=== PATIENT | female | born 1930 ===

== ENCOUNTER 2018-05-13 08:38 | Inpatient (IN) | payer MEDICARE, OTHER ==
[2018-05-10 12:04] VITALS: BMI 24.9
[2018-05-13] MEDS ORDERED: Lidocaine 2% MPF (5 ml) Inj ONE (13:54)
[2018-05-13] MEDS ORDERED: Lidocaine Hydrochloride 0 ML INJ ONE (13:54)
[2018-05-13] MEDS ORDERED: Clindamycin 600mg/50ml NS 600 MG/50 ML BAG IVPB ONE (13:54)
[2018-05-13] MEDS ORDERED: Bupivacaine 0.25% 20 ML INJ IJ ONE (13:54)
[2018-05-13] MEDS ORDERED: Lidocaine Hydrochloride 5 ML INJ ONE (14:04)
[2018-05-13] MEDS ORDERED: Propofol 10 mg/ml Inj (20 ML) ONE (14:05)
[2018-05-13] MEDS ORDERED: ePHEDrine 50 mg/ml Inj ONE (14:19)
[2018-05-13] MEDS ORDERED: HYDROmorphone 0.5 mg/0.5 ml ISec IVP PRN (14:30)
[2018-05-13] MEDS ORDERED: Oxycodone/Acetaminophen 5/325 mg Tab PO PRN (14:46)
--- NOTE | 2018-05-13 14:58 | PCM.SURG1 ---
Surgeon's Initial Post Op Note - Surgeon's Notes Surgeon: Dr. Batres Interactive Marketing Strategist: Dr. Meyer PGY2 Type of Anesthesia: General LMA Anesthesia Administered By: Dr. Smith Pre-Operative Diagnosis: Left Gluteal Hematoma Operative Findings: See operative report Post-Operative Diagnosis: same Operation Performed: Left Gluteal Hematoma Incision and Drainage Specimen/Specimens Removed: Left gluteal hematoma Estimated Blood Loss: EBL {In ML}: 10 Blood Products Given: N/A Drains Used: No Drains Post-Op Condition: Good Date of Surgery/Procedure: 05/13/18 Time of Surgery/Procedure: 15:02
[2018-05-13] MEDS ORDERED: HYDROmorphone 0.5 mg/0.5 ml ISec ONE (15:28)
[2018-05-13] MEDS ORDERED: Albuterol HFA 90 mcg/actuation (8 g) IH SCH (18:00)
[2018-05-13 23:22] VITALS: RESP 20
[2018-05-14] MEDS ORDERED: Levothyroxine 50 MCG TAB PO SCH (06:30)
[2018-05-14] MEDS ORDERED: Pantoprazole 40 mg EC Tab PO SCH (10:00)
[2018-05-14] MEDS ORDERED: Pneumococcal 23-Valent Vaccine IM ONE (10:00)
--- NOTE | 2018-05-14 13:18 | OP ---
PROCEDURE DATE: 05/13/2018 PREOPERATIVE DIAGNOSIS: Large left hip hematoma. POSTOPERATIVE DIAGNOSIS: Large left hip hematoma. PROCEDURE CARRIED OUT: Evacuation of 15 cm hip hematoma, left side. SURGEON: Hema Batres Jr., MD WEB PRESS OPERATOR APPRENTICE: Tre Meyer DO ANESTHESIOLOGIST: Dr. Smith The patient is an ill elderly woman who fell and developed a large hematoma on her left side just over hip . This was evacuated, appeared to be clot, was sterilely irrigated with peroxide and packed open. Blood loss to the procedure was minimal 10 to 15 cc, but there was a large hematoma that was evacuated. The patient tolerated the procedure very well. Hema Batres Jr., MD cc: Steph Torres MD
--- NOTE | 2018-05-14 15:05 | CP.PCM.DIS ---
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 Patient tolerated procedure well and was kept overnight for observation. Patient was discharged the following day, packing was removed and hemostasis was noted prior to clearing for discharge home. Patient and patient's caregiver (son) was given supplies and follow up instructions. All questions and concerns were addressed. Patient and son agree with plan. Discharge Exam - Head Exam Head Exam: ATRAUMATIC, NORMAL INSPECTION, NORMOCEPHALIC - Eye Exam Eye Exam: EOMI, Normal appearance. absent: Scleral icterus - Cardiovascular Exam Cardiovascular Exam: RRR. absent: JVD - GI/Abdominal Exam GI & Abdominal Exam: Soft, Unremarkable. absent: Distended, Firm, Guarding, Rebound, Rigid, Tenderness - Extremities Exam Extremities exam: normal inspection Additional comments: left gluteal hematoma site dressing changed. Packing removed. Dressing clean, dry and intact. - Neurological Exam Neurological exam: Alert - Skin Skin Exam: Dry, Normal Color, Warm Discharge Plan - Follow Up Plan Condition: GOOD Disposition: HOME/ ROUTINE
[2018-05-14 16:18] VITALS: PULSE 82; TEMP 97.7; O2SAT 98
[2018-05-14 18:42] VITALS: BP 127/68
--- NOTE | 2018-05-15 08:31 | PCM.HF ---
Heart Failure Core Measure - Heart Failure Ejection Fraction: 40 % or Greater LIZBETH Inhibitor Prescribed: No Contraindication/Reason for not providing: EF>45 Beta-Cara Prescribed: Metoprolol Succinate Angiotensin II Receptor Cara Prescribed: No Contraindication/Reason for not providing: EF>45 AnticoagulationTherapy for Atrial Fibrillation/Atrialflutter: No Contraindication/Reason for not providing: NO HX OD A FIB Aldosterone Antagonist Prescribed: No Contraindication/Reason for not providing: EF>45 Hydralazine Nitrate Prescribed: No Contraindication/Reason for not providing: EF>45 Implantable Cardioverter Defibrillator Therapy: No Contraindication/Reason for not providing: EF>45 Cardiac Resynchronization Therapy Prescribed: No Contraindication/Reason for not providing: EF>45 - Follow up Will be discharged to: Home Follow Up Date (must be within 7 days from discharge): 05/20/18 Follow Up Time: 15:00
== END 2018-05-14 19:46 | disposition home or self-care (01) | DRG 605 ==
LOC: C.SDS 08:38 → C.9S 14:38 → C.3T 21:20
PROVIDERS: ADMIT Surgery Vascular Surgery; ATTEND Surgery Vascular Surgery
PROC: 0Y9D0ZZ Drainage of Left Upper Leg, Open Approach (ICD-10-PCS; principal; 2018-05-13 12:15)
DX: S80.12XA Contusion of left lower leg, initial encounter (principal); S70.02XA Contusion of left hip, initial encounter; X58.XXXA Exposure to other specified factors, initial encounter; Y93.9 Activity, unspecified; Y92.9 Unspecified place or not applicable

== ENCOUNTER 2018-08-18 16:13 | Observation (INO) | payer MEDICARE, OTHER ==
[2018-08-18 16:14] VITALS: BMI 24.9
[2018-08-18] MEDS ORDERED: Aspirin 325 mg EC Tablets PO STA (17:27)
--- NOTE | 2018-08-18 17:43 | RAD ---
Date of service: 08/18/2018 PROCEDURE: CHEST RADIOGRAPH, 1 VIEW HISTORY: SOB, CP COMPARISON: 05/10/2018 FINDINGS: LUNGS: Clear. PLEURA: No pneumothorax or pleural fluid seen. CARDIOVASCULAR: No aortic atherosclerotic calcification present. Normal. OSSEOUS STRUCTURES: No significant abnormalities. VISUALIZED UPPER ABDOMEN: Normal. OTHER FINDINGS: None. IMPRESSION: No active disease.
[2018-08-18 17:48] LABS: BASO # 0.1 K/uL (0.0-0.2); BASO % 0.7 % (0.0-2.0); EOS # 0.1 K/uL (0.0-0.7); EOS % 1.5 % (0.0-4.0); HEMOGLOBIN 11.9 g/dL (11.0-16.0); LYMPH # 1.5 K/uL (1.0-4.3); LYMPH % 21.1 % (20.0-40.0); MEAN CORPUSCULAR HEMOGLOBIN 31.4 pg (27.0-31.0); MEAN CORPUSCULAR HGB CONC 33.4 g/dL (33.0-37.0); MEAN PLATELET VOLUME 9.7 fL (7.2-11.7); MONO # 0.7 K/uL (0.0-0.8); MONO % 9.5 % (0.0-10.0); NEUT # 4.7 K/uL (1.8-7.0); NEUT % 67.2 % (50.0-75.0); RBC 3.78 Mil/uL (3.80-5.20); RED CELL DISTRIBUTION WIDTH 15.4 % (11.5-14.5)
[2018-08-18 17:58] LABS: PROTHROMBIN TIME 11.4 SECONDS (9.7-12.2)
[2018-08-18 18:02] LABS: ALB/GLOB RATIO 1.8 (1.0-2.1); ALT/SGPT 6 U/L (9-52); AST/SGOT 23 U/L (14-36); BLOOD UREA NITROGEN 18 mg/dL (7-17); GFR NON-AFRICAN AMERICAN 39
[2018-08-18] MEDS ORDERED: Aspirin 325 mg EC Tablets PO ONE (18:03)
[2018-08-18 18:10] LABS: CK-MB 0.46 ng/mL (0.0-3.38)
--- NOTE | 2018-08-18 18:11 | C.PDOC ---
History Of Present Illness 88 y/o female presents to the ED complaining of chest pain for the last 3 days. Associated with SOB. Patient also states the chest pain is localized in her left breast. She reports hx of right breast cancer 20 years ago. Otherwise patient denies any fevers, chills, productive cough, nausea, vomiting, diaphoresis, leg pain or swelling. Time Seen by Provider: 08/18/18 16:56 Chief Complaint (Nursing): Chest Pain History Per: Patient History/Exam Limitations: no limitations Onset/Duration Of Symptoms: Days (3) Current Symptoms Are (Timing): Still Present Associated Symptoms: Dyspnea Past Medical History Reviewed: Historical Data, Nursing Documentation, Vital Signs Vital Signs: Last Vital Signs Temp 98.7 F 08/18/18 16:20 Pulse 62 08/18/18 17:37 Resp 22 08/18/18 17:37 BP 147/70 08/18/18 17:37 Pulse Ox 93 L 08/18/18 17:37 - Medical History PMH: Anemia, Arthritis, Asthma, COPD, Dementia, Diabetes, Diverticulitis, HTN, Hypothyroidism, Malignancy (Right breast CA), Osteoporosis Denies: Chronic Kidney Disease Surgical History: Cholecystectomy, Endoscopy - [facility] Procedures CLOSED ENDOSCOPIC BIOPSY OF LARGE INTESTINE (10/22/13) DRAINAGE OF LEFT UPPER LEG, OPEN APPROACH (05/13/18) ENDO EXCISION/DEST OF LESION OR TISSUE OF STOMACH (10/22/13) ESOPHAGOGASTRODUODENOSCOPY [EGD] W/CLOSED BIOPSY (12/09/12) OTHER ENDOSCOPY OF SM INTEST (02/09/15) Family History: States: No Known Family Hx - Social History Hx Tobacco Use: No Hx Alcohol Use: No Hx Substance Use: No - Immunization History Hx Tetanus Toxoid Vaccination: Yes Hx Influenza Vaccination: Yes Hx Pneumococcal Vaccination: Yes Review Of Systems Except As Marked, All Systems Reviewed And Found Negative. Constitutional: Negative for: Fever, Chills, Sweats Eyes: Negative for: Vision Change Cardiovascular: Positive for: Chest Pain (left-sided, +left breast pain/mass). Negative for: Palpitations Respiratory: Positive for: Shortness of Breath. Negative for: Cough, Sputum Gastrointestinal: Negative for: Nausea, Vomiting, Diarrhea Musculoskeletal: Negative for: Back Pain Skin: Negative for: Rash Neurological: Negative for: Weakness, Numbness, Dizziness Physical Exam - Physical Exam Appears: Non-toxic, No Acute Distress Skin: Normal Color, Warm, Dry Head: Atraumatic, Normacephalic Eye(s): bilateral: Normal Inspection, PERRL, EOMI Oral Mucosa: Moist Neck: Normal ROM Chest: Tenderness (Left breast is TTP, no obvious mass or skin changes, no nipple discharge), No Ecchymosis Cardiovascular: Rhythm Regular, No Murmur Respiratory: Normal Breath Sounds, No Rales, No Rhonchi, No Wheezing Gastrointestinal/Abdominal: Soft, No Tenderness, No Distention Extremity: Normal ROM, No Calf Tenderness, No Deformity, No Swelling Pulses: Left Dorsalis Pedis: Normal, Right Dorsalis Pedis: Normal Neurological/Psych: Oriented x3, Normal Speech Gait: Steady ED Course And Treatment - Laboratory Results Result Diagrams: 08/18/18 17:45 08/18/18 17:45 Lab Results: PT 11.4 SECONDS (9.7-12.2) 08/18/18 17:45 INR 1.0 08/18/18 17:45 APTT 28 SECONDS (21-34) 08/18/18 17:45 Total Bilirubin 0.3 mg/dL (0.2-1.3) 08/18/18 17:45 AST 23 U/L (14-36) 08/18/18 17:45 ALT 6 U/L (9-52) L D 08/18/18 17:45 Alkaline Phosphatase 38 U/L (38-126) 08/18/18 17:45 Total Protein 6.2 g/dL (6.3-8.3) L 08/18/18 17:45 Albumin 4.0 g/dL (3.5-5.0) 08/18/18 17:45 Globulin 2.2 gm/dL (2.2-3.9) 08/18/18 17:45 Albumin/Globulin Ratio 1.8 (1.0-2.1) 08/18/18 17:45 ECG: Interpreted By Me ECG Rhythm: Sinus Rhythm ECG Interpretation: No Acute Changes Rate From EC O2 Sat by Pulse Oximetry: 93 (on RA) Pulse Ox Interpretation: Abnormal - Other Rad CXR X-Ray: Read By Radiologist Interpretation: Accession No. : [id number]. Patient Name / ID : ALEX COLORADO / [id number]. Exam Date : 08/18/2018 17:27:05 ( Approved ). Study Comment : Sex / Age : F / 88Y. Creator : Christopher James MD. Dictator : Christopher James MD. Family Services Assistant : Manager Of School : Christopher James MD. Approver2 : Report Date : 08/18/2018 17:40:05. My Comment : . Date of service: 08/18/2018. PROCEDURE: CHEST RADIOGRAPH, 1 VIEW. HISTORY: SOB, CP. COMPARISON: 05/10/2018. FINDINGS: LUNGS: Clear. PLEURA: No pneumothorax or pleural fluid seen. CARDIOVASCULAR: No aortic atherosclerotic calcification present. Normal. OSSEOUS STRUCTURES: No significant abnormalities. VISUALIZED UPPER ABDOMEN: Normal. OTHER FINDINGS: None. IMPRESSION: No active disease. Progress Note: Blood work and urine sent to the lab. CXR ordered and reviewed. Patient given 325 mg PO aspirin. - Physician Consult Information Physician Contacted: Sandra Sylvester Outcome Of Conversation: accepted to [facility] for observation Disposition - Disposition Disposition: HOSPITALIZED Disposition Time: 18:27 Condition: FAIR - Clinical Impression Clinical Impression: Chest pain, Breast pain, left - PA / QA INTERN / Resident Statement MD/DO has reviewed & agrees with the documentation as recorded. - Scribe Statement The provider has reviewed the documentation as recorded by the Scribe Effie Pressley All medical record entries made by the Scribe were at my direction and personally dictated by me. I have reviewed the chart and agree that the record accurately reflects my personal performance of the history, physical exam, medical decision making, and the department course for this patient. I have also personally directed, reviewed, and agree with the discharge instructions and disposition. Decision To Admit - Pt Status Changed To: Hospital Disposition Of: Observation - . Bed Request Type: Telemetry Admitting Physician: Sandra Sylvester Patient Diagnosis: Chest pain, Breast pain, left
[2018-08-18 18:51] LABS: SQUAMOUS EPITHIAL 4 /hpf (0-5); URINE BACTERIA RARE (<OCC); URINE BILIRUBIN NEGATIVE (NEGATIVE); URINE BLOOD NEGATIVE (NEGATIVE); URINE CLARITY Hazy (Clear); URINE COLOR Yellow (YELLOW); URINE GLUCOSE (UA) NORMAL (Normal); URINE LEUKOCYTE ESTERASE TRACE Leu/uL (Negative); URINE PROTEIN NEGATIVE (NEGATIVE); URINE UROBILINOGEN NORMAL mg/dL (0.2-1.0)
[2018-08-18] MEDS ORDERED: VENTOLIN IH PRN (23:02)
[2018-08-19 01:11] LABS: CK-MB 0.43 ng/mL (0.0-3.38)
[2018-08-19 07:34] LABS: CK-MB 0.62 ng/mL (0.0-3.38); TROPONIN I 0.013 ng/mL (0.00-0.120)
[2018-08-19] MEDS: (Novolog) Insulin Aspart, Recombinant 100 u/ml 10 ml vial SC SCH ×4 (07:43→21:02)
[2018-08-19] MEDS ORDERED: Albuterol HFA 90 mcg/actuation (8 g) INH PRN (09:15)
[2018-08-19] MEDS: Potassium Chloride 20 mEq ER Tab PO SCH (09:39)
[2018-08-19] MEDS: Pantoprazole 40 mg EC Tab PO SCH (09:40)
[2018-08-19] MEDS: Levothyroxine 50 MCG TAB PO SCH (09:40)
[2018-08-19] MEDS ORDERED: [UNRECOGNIZED DRUG - OTHER] PO SCH (10:00)
[2018-08-19] MEDS ORDERED: IRON PO SCH (10:00)
[2018-08-19] MEDS ORDERED: DOCUSATE PO SCH (10:00)
[2018-08-19] MEDS ORDERED: B12 PO SCH (10:00)
[2018-08-19] MEDS ORDERED: Enoxaparin 40 mg Syringe SC SCH ×2 (10:00)
[2018-08-19] MEDS ORDERED: FOLIC ACID PO SCH (10:00)
[2018-08-19] MEDS: Enoxaparin 30 mg Syringe SC SCH (12:11)
[2018-08-19] MEDS: Fluticasone-Vilanterol 200/25mcg Diskus INH SCH (13:23)
--- NOTE | 2018-08-19 16:49 | CARD ---
APPROVED REPORT Date of service: 08/19/2018 EXAM: Two-dimensional and M-mode echocardiogram with Doppler and color Doppler. Other Information Quality : GoodRhythm : INDICATION Chest Pain 2D DIMENSIONS IVSd0.8 (0.7-1.1cm)Aortic Root (2D)3.0 (2.0-3.7cm) LVDd4.6 (3.9-5.9cm)PWd0.8 (0.7-1.1cm) LA Rxnmhg65 (18-58mL)LVDs2.9 (2.5-4.0cm) FS (%) 37.2 %LVEF (%)67.2 (>50%) LVEF (Iglesias's)68.32 %IVC0.00 cm M-Mode DIMENSIONS Left Atrium (MM)3.46 (2.5-4.0cm)IVSd0.79 (0.7-1.1cm) Aortic Root3.07 (2.2-3.7cm)LVDd5.41 (4.0-5.6cm) Aortic Cusp Exc.1.31 (1.5-2.0cm)PWd0.79 (0.7-1.1cm) FS (%) 42 %LVDs3.16 (2.0-3.8cm) LVEF (%)72 (>50%) Aortic Valve AI P 1/2 [id number] Mitral Valve MV E Orkwubxs01.3cm/sMV A Yyazggyy080.7cm/sE/A ratio0.6 TDI Lateral E' Peak V6.48cm/sMedial E' Peak V3.51cm/sE/Lateral E'13.2 E/Medial E'24.3 Tricuspid Valve TR Peak Lscqcyph093fv/sTR Peak Gr.[id number] LEFT VENTRICLE The left ventricle is normal size. There is mild concentric left ventricular hypertrophy. The left ventricular function is normal. The left ventricular ejection fraction is within the normal range. There is normal LV segmental wall motion. Transmitral Doppler flow pattern is Grade I-abnormal relaxation pattern. RIGHT VENTRICLE The right ventricle is normal size. There is normal right ventricular wall thickness. The right ventricular systolic function is normal. ATRIA The left atrium size is normal. The right atrium size is normal. AORTIC VALVE The aortic valve is moderately sclerotic. There is moderate aortic regurgitation. There is no aortic valvular stenosis. MITRAL VALVE The mitral valve is mildly thickened. There is no mitral valve stenosis. Mitral regurgitation is trace. TRICUSPID VALVE The tricuspid valve is normal in structure. There is mild tricuspid regurgitation. PULMONIC VALVE The pulmonary valve is normal in structure. There is mild pulmonic valvular regurgitation. GREAT VESSELS The aortic root is normal in size. The IVC is dilated. PERICARDIAL EFFUSION There is a trace pericardial effusion. <Conclusion> There is mild concentric left ventricular hypertrophy. The left ventricular function is normal. The left ventricular ejection fraction is within the normal range. There is normal LV segmental wall motion. Transmitral Doppler flow pattern is Grade I-abnormal relaxation pattern. There is moderate aortic regurgitation.
--- NOTE | 2018-08-19 18:40 | CP.PCM.HP ---
Past Patient History - Past Medical History & Family History Past Medical History?: Yes - Past Social History Smoking Status: Never Smoked - CARDIAC Hx Hypertension: Yes - PULMONARY Hx Asthma: Yes Hx Chronic Obstructive Pulmonary Disease (COPD): Yes - NEUROLOGICAL Hx Dementia: Yes - HEENT Hx HEENT Problems: Yes Hx Cataracts: (BIOL) Hx Deafness: Yes (left ear) - RENAL Hx Chronic Kidney Disease: No - ENDOCRINE/METABOLIC Hx Hypothyroidism: Yes - HEMATOLOGICAL/ONCOLOGICAL Hx Anemia: Yes - INTEGUMENTARY Hx Dermatological Problems: No - MUSCULOSKELETAL/RHEUMATOLOGICAL Hx Falls: Yes - GASTROINTESTINAL Hx Diverticulitis: Yes - GENITOURINARY/GYNECOLOGICAL Hx Genitourinary Disorders: No - PSYCHIATRIC Hx Substance Use: No - SURGICAL HISTORY Hx Cholecystectomy: Yes - ANESTHESIA Hx Anesthesia: Yes Hx Anesthesia Reactions: No Hx Malignant Hyperthermia: No Meds Allergies/Adverse Reactions: Allergies Allergy/AdvReac Type Severity Reaction Status Date / Time Penicillins Allergy Intermediate RASH Verified 08/18/18 16:34 shellfish derived Allergy Intermediate RASH Verified 08/18/18 16:34 tomato Allergy Intermediate RASH Verified 08/18/18 16:34 Results - Vital Signs Recent Vital Signs: Last Vital Signs Temp 97.7 F 08/19/18 16:00 Pulse 78 08/19/18 18:00 Resp 17 08/19/18 16:00 BP 124/61 08/19/18 18:15 Pulse Ox 94 L 08/19/18 16:00 - Labs Result Diagrams: 08/18/18 17:45 08/18/18 17:45 Labs: Laboratory Results - last 24 hr 08/18/18 08/19/18 08/19/18 18:44 00:44 06:53 POC Glucose (mg/dL) Total Creatine Kinase 26 L 28 L CK-MB (Mass) 0.43 0.62 Troponin I < 0.0120 0.0130 Urine Color Yellow Urine Clarity Hazy Urine pH 6.0 Ur Specific Gifford 1.005 Urine Protein Negative Urine Glucose (UA) Normal Urine Ketones Negative Urine Blood Negative Urine Nitrate Negative Urine Bilirubin Negative Urine Urobilinogen Normal Ur Leukocyte Esterase Trace Urine WBC (Auto) 7 H Urine RBC (Auto) 1 Ur Squamous Epith Cells 4 Urine Bacteria Rare Hyaline Casts 3-5 H 08/19/18 07:26 POC Glucose (mg/dL) 99 Total Creatine Kinase CK-MB (Mass) Troponin I Urine Color Urine Clarity Urine pH Ur Specific Gifford Urine Protein Urine Glucose (UA) Urine Ketones Urine Blood Urine Nitrate Urine Bilirubin Urine Urobilinogen Ur Leukocyte Esterase Urine WBC (Auto) Urine RBC (Auto) Ur Squamous Epith Cells Urine Bacteria Hyaline Casts
--- NOTE | 2018-08-19 23:08 | CP.PCM.CON ---
History of Present Illness - History of Present Illness History of Present Illness: Patient seen and evaluated Admitted for chest pain Scheduled for stress test and ECHO in am 88 y/o female presents to the ED complaining of chest pain for the last 3 days. Associated with SOB. Patient also states the chest pain is localized in her left breast. She reports hx of right breast cancer 20 years ago. Otherwise patient denies any fevers, chills, productive cough, nausea, vomiting, diaphoresis, leg pain or swelling. Chief Complaint (Nursing): Chest Pain History Per: Patient History/Exam Limitations: no limitations Onset/Duration Of Symptoms: Days (3) Current Symptoms Are (Timing): Still Present Associated Symptoms: Dyspnea Past Medical History Reviewed: Historical Data, Nursing Documentation, Vital Signs Vital Signs: Last Vital Signs Temp 98.7 F 08/18/18 16:20 Pulse 62 08/18/18 17:37 Resp 22 08/18/18 17:37 BP 147/70 08/18/18 17:37 Pulse Ox 93 L 08/18/18 17:37 - Medical History PMH: Anemia, Arthritis, Asthma, COPD, Dementia, Diabetes, Diverticulitis, HTN, Hypothyroidism, Malignancy (Right breast CA), Osteoporosis Denies: Chronic Kidney Disease Surgical History: Cholecystectomy, [facility] [place] Procedures CLOSED ENDOSCOPIC BIOPSY OF LARGE INTESTINE (10/22/13) DRAINAGE OF LEFT UPPER LEG, OPEN APPROACH (05/13/18) ENDO EXCISION/DEST OF LESION OR TISSUE OF STOMACH (10/22/13) ESOPHAGOGASTRODUODENOSCOPY [EGD] W/CLOSED BIOPSY (12/09/12) OTHER ENDOSCOPY OF SM INTEST (02/09/15) Family History: States: No Known Family Hx - Social History Hx Tobacco Use: No Hx Alcohol Use: No Hx Substance Use: No - Immunization History Hx Tetanus Toxoid Vaccination: Yes Hx Influenza Vaccination: Yes Hx Pneumococcal Vaccination: Yes Review Of Systems Except As Marked, All Systems Reviewed And Found Negative. Constitutional: Negative for: Fever, Chills, Sweats Eyes: Negative for: Vision Change Cardiovascular: Positive for: Chest Pain (left-sided, +left breast pain/mass). Negative for: Palpitations Respiratory: Positive for: Shortness of Breath. Negative for: Cough, Sputum Gastrointestinal: Negative for: Nausea, Vomiting, Diarrhea Musculoskeletal: Negative for: Back Pain Skin: Negative for: Rash Neurological: Negative for: Weakness, Numbness, Dizziness Physical Exam - Physical Exam Appears: Non-toxic, No Acute Distress Skin: Normal Color, Warm, Dry Head: Atraumatic, Normacephalic Eye(s): bilateral: Normal Inspection, PERRL, EOMI Oral Mucosa: Moist Neck: Normal ROM Chest: Tenderness (Left breast is TTP, no obvious mass or skin changes, no nipple discharge), No Ecchymosis Cardiovascular: Rhythm Regular, No Murmur Respiratory: Normal Breath Sounds, No Rales, No Rhonchi, No Wheezing Gastrointestinal/Abdominal: Soft, No Tenderness, No Distention Extremity: Normal ROM, No Calf Tenderness, No Deformity, No Swelling Pulses: Left Dorsalis Pedis: Normal, Right Dorsalis Pedis: Normal Neurological/Psych: Oriented x3, Normal Speech Gait: Steady Past Patient History - Past Medical History & Family History Past Medical History?: Yes - Past Social History Smoking Status: Never Smoked - CARDIAC Hx Hypertension: Yes - PULMONARY Hx Asthma: Yes Hx Chronic Obstructive Pulmonary Disease (COPD): Yes - NEUROLOGICAL Hx Dementia: Yes - HEENT Hx HEENT Problems: Yes Hx Cataracts: (BIOL) Hx Deafness: Yes (left ear) - RENAL Hx Chronic Kidney Disease: No - ENDOCRINE/METABOLIC Hx Hypothyroidism: Yes - HEMATOLOGICAL/ONCOLOGICAL Hx Anemia: Yes - INTEGUMENTARY Hx Dermatological Problems: No - MUSCULOSKELETAL/RHEUMATOLOGICAL Hx Falls: Yes - GASTROINTESTINAL Hx Diverticulitis: Yes - GENITOURINARY/GYNECOLOGICAL Hx Genitourinary Disorders: No - PSYCHIATRIC Hx Substance Use: No - SURGICAL HISTORY Hx Cholecystectomy: Yes - ANESTHESIA Hx Anesthesia: Yes Hx Anesthesia Reactions: No Hx Malignant Hyperthermia: No Meds Allergies/Adverse Reactions: Allergies Allergy/AdvReac Type Severity Reaction Status Date / Time Penicillins Allergy Intermediate RASH Verified 08/18/18 16:34 shellfish derived Allergy Intermediate RASH Verified 08/18/18 16:34 tomato Allergy Intermediate RASH Verified 08/18/18 16:34 - Medications Medications: Current Medications Albuterol (Ventolin Hfa 90 Mcg/Actuation (8 G)) 1 puff INH RBID PRN PRN Reason: Wheezing Amlodipine Besylate (Norvasc) 5 mg PO DAILY [facility] Last Admin: 08/19/18 09:39 Dose: 5 mg Ascorbic Ac/Ferrous Sulf/Folic Acid (Iberet-Folic 500) 1 ter PO DAILY [facility] Aspirin (Aspirin Chewable) 81 mg PO DAILY [facility] Last Admin: 08/19/18 09:39 Dose: 81 mg Duloxetine HCl (Cymbalta) 30 mg PO HS [facility] Last Admin: 08/19/18 21:02 Dose: 30 mg Enoxaparin Sodium (Lovenox) 30 mg SC Q24H [facility] Last Admin: 08/19/18 12:11 Dose: 30 mg Fluticasone/Vilanterol (Breo Ellipta 200-25 Mcg Inh) 1 puff INH RQD [facility] Last Admin: 08/19/18 13:23 Dose: 1 puff Furosemide (Lasix) 40 mg PO DAILY [facility] Last Admin: 08/19/18 09:39 Dose: 40 mg Insulin Aspart (Novolog) [address] [facility]; Protocol Last Admin: 08/19/18 21:02 Dose: Not Given Levothyroxine Sodium (Synthroid) 50 mcg PO DAILY@0630 [facility] Last Admin: 08/19/18 09:40 Dose: 50 mcg Metoprolol Tartrate (Lopressor) 25 mg PO BID [facility] Last Admin: 08/19/18 18:15 Dose: 25 mg Pantoprazole Sodium (Protonix Ec Tab) 40 mg PO DAILY [facility] Last Admin: 08/19/18 09:40 Dose: 40 mg Potassium Chloride (K-Dur 20 Meq Er Tab) 20 meq PO DAILY [facility] Last Admin: 08/19/18 09:39 Dose: 20 meq Rosuvastatin Calcium (Crestor) 10 mg PO HS [facility] Last Admin: 08/19/18 21:02 Dose: 10 mg Zolpidem Tartrate (Ambien) 5 mg PO HS [facility] Last Admin: 08/19/18 21:02 Dose: 5 mg Results - Vital Signs Recent Vital Signs: Last Vital Signs Temp 98.9 F 08/19/18 22:00 Pulse 72 08/19/18 20:00 Resp 17 08/19/18 20:00 BP 125/65 08/19/18 19:52 Pulse Ox 93 L 08/19/18 20:00 - Labs Result Diagrams: 08/18/18 17:45 08/18/18 17:45 Labs: Laboratory Results - last 24 hr 08/19/18 08/19/18 08/19/18 00:44 06:53 07:26 POC Glucose (mg/dL) 99 Total Creatine Kinase 26 L 28 L CK-MB (Mass) 0.43 0.62 Troponin I < 0.0120 0.0130 Assessment & Plan - Assessment and Plan (Free Text) Assessment: Admitted for chest pain Scheduled for stress test and ECHO in am HTN under control
[2018-08-20] MEDS: Levothyroxine 50 MCG TAB PO SCH (05:30)
[2018-08-20] MEDS ORDERED: Caffeine Citrated **INJ** 20 MG/ML IV ONE (08:02)
[2018-08-20] MEDS: (Novolog) Insulin Aspart, Recombinant 100 u/ml 10 ml vial SC SCH ×4 (08:04→21:19)
[2018-08-20] MEDS: Potassium Chloride 20 mEq ER Tab PO SCH (12:50)
[2018-08-20] MEDS: Enoxaparin 30 mg Syringe SC SCH (12:52)
[2018-08-20] MEDS: Pantoprazole 40 mg EC Tab PO SCH (12:52)
[2018-08-20] MEDS: Folic Acid/Ascorbic Acid/Ferrous Sulfate 1 Tab PO SCH (12:53)
[2018-08-20] MEDS: Fluticasone-Vilanterol 200/25mcg Diskus INH SCH (12:57)
--- NOTE | 2018-08-20 18:02 | US ---
Date of service: 08/19/2018 PROCEDURE: Ultrasound left breast HISTORY: r/o abcess Personal history of breast cancer: Diagnosed 20 years ago. Right breast cancer, follow-up radiation therapy. COMPARISON: None TECHNIQUE: Standard protocol for this study/examination. FINDINGS: Cyst(s): None Breast mass: None Dilated ducts: None Parenchymal distortion: None Skin thickening or subcutaneous abnormalities: None Morphologically, unremarkable lymph node(s) measures 0.8 x 3 cm. IMPRESSION: BIRADS 2 Benign findings. Recommendation: Continue annual screening mammography, as per ACR guidelines. Patient management should be based on findings on physical examination in the absence of either ultrasound and/or mammographic correlate. Concordant findings (preliminary report) provided by [facility].
--- NOTE | 2018-08-20 18:24 | CP.PCM.PN ---
Subjective - Date & Time of Evaluation Date of Evaluation: 08/20/18 Time of Evaluation: 18:23 Objective - Vital Signs/Intake and Output Vital Signs (last 24 hours): Temp Pulse Resp BP Pulse Ox 98 F 86 19 127/67 95 08/20/18 04:00 08/20/18 04:14 08/20/18 04:14 08/20/18 18:01 08/20/18 04:14 Intake and Output: 08/20/18 08/20/18 06:59 18:59 Intake Total 240 Balance 240 - Medications Medications: Current Medications Albuterol (Ventolin Hfa 90 Mcg/Actuation (8 G)) 1 puff INH RBID PRN PRN Reason: Wheezing Amlodipine Besylate (Norvasc) 5 mg PO DAILY [facility] Last Admin: 08/20/18 12:48 Dose: 5 mg Ascorbic Ac/Ferrous Sulf/Folic Acid (Iberet-Folic 500) 1 ter PO DAILY [facility] Last Admin: 08/20/18 12:53 Dose: Not Given Aspirin (Aspirin Chewable) 81 mg PO DAILY [facility] Last Admin: 08/20/18 12:46 Dose: 81 mg Duloxetine HCl (Cymbalta) 30 mg PO HS [facility] Last Admin: 08/19/18 21:02 Dose: 30 mg Enoxaparin Sodium (Lovenox) 30 mg SC Q24H [facility] Last Admin: 08/20/18 12:52 Dose: 30 mg Fluticasone/Vilanterol (Breo Ellipta 200-25 Mcg Inh) 1 puff INH RQD [facility] Last Admin: 08/20/18 12:57 Dose: 1 puff Furosemide (Lasix) 40 mg PO DAILY [facility] Last Admin: 08/20/18 12:51 Dose: 40 mg Insulin Aspart (Novolog) 0 unit SC ACHS [facility]; Protocol Last Admin: 08/20/18 16:22 Dose: Not Given Levothyroxine Sodium (Synthroid) 50 mcg PO DAILY@0630 [facility] Last Admin: 08/20/18 05:30 Dose: Not Given Metoprolol Tartrate (Lopressor) 25 mg PO BID [facility] Last Admin: 08/20/18 18:01 Dose: 25 mg Pantoprazole Sodium (Protonix Ec Tab) 40 mg PO DAILY [facility] Last Admin: 08/20/18 12:52 Dose: 40 mg Potassium Chloride (K-Dur 20 Meq Er Tab) 20 meq PO DAILY [facility] Last Admin: 08/20/18 12:50 Dose: 20 meq Rosuvastatin Calcium (Crestor) 10 mg PO HS [facility] Last Admin: 08/19/18 21:02 Dose: 10 mg Zolpidem Tartrate (Ambien) 5 mg PO HS [facility] Last Admin: 08/19/18 21:02 Dose: 5 mg - Labs Labs: 08/18/18 17:45 08/18/18 17:45 PT 11.4 SECONDS (9.7-12.2) 08/18/18 17:45 INR 1.0 08/18/18 17:45 APTT 28 SECONDS (21-34) 08/18/18 17:45
--- NOTE | 2018-08-20 23:07 | CP.PCM.PN ---
Subjective - Date & Time of Evaluation Date of Evaluation: 08/20/18 Time of Evaluation: 16:25 - Subjective Subjective: Patient seen and evaluated Confused on 1:1 observation Review Of Systems Except As Marked, All Systems Reviewed And Found Negative. Constitutional: Negative for: Fever, Chills, Sweats Eyes: Negative for: Vision Change Cardiovascular: Positive for: Chest Pain (left-sided, +left breast pain/mass). Negative for: Palpitations Respiratory: Positive for: Shortness of Breath. Negative for: Cough, Sputum Gastrointestinal: Negative for: Nausea, Vomiting, Diarrhea Musculoskeletal: Negative for: Back Pain Skin: Negative for: Rash Neurological: Negative for: Weakness, Numbness, Dizziness Physical Exam - Physical Exam Appears: Non-toxic, No Acute Distress Skin: Normal Color, Warm, Dry Head: Atraumatic, Normacephalic Eye(s): bilateral: Normal Inspection, PERRL, EOMI Oral Mucosa: Moist Neck: Normal ROM Chest: Tenderness (Left breast is TTP, no obvious mass or skin changes, no nipple discharge), No Ecchymosis Cardiovascular: Rhythm Regular, No Murmur Respiratory: Normal Breath Sounds, No Rales, No Rhonchi, No Wheezing Gastrointestinal/Abdominal: Soft, No Tenderness, No Distention Extremity: Normal ROM, No Calf Tenderness, No Deformity, No Swelling Pulses: Left Dorsalis Pedis: Normal, Right Dorsalis Pedis: Normal Neurological/Psych: Oriented x3, Normal Speech Gait: Steady Objective - Vital Signs/Intake and Output Vital Signs (last 24 hours): Temp Pulse Resp BP Pulse Ox 98.6 F 71 23 138/80 95 08/20/18 20:00 08/20/18 20:31 08/20/18 20:00 08/20/18 20:00 08/20/18 20:00 - Medications Medications: Current Medications Albuterol (Ventolin Hfa 90 Mcg/Actuation (8 G)) 1 puff INH RBID PRN PRN Reason: Wheezing Amlodipine Besylate (Norvasc) 5 mg PO DAILY [facility] Last Admin: 08/20/18 12:48 Dose: 5 mg Ascorbic Ac/Ferrous Sulf/Folic Acid (Iberet-Folic 500) 1 ter PO DAILY [facility] Last Admin: 08/20/18 12:53 Dose: Not Given Aspirin (Aspirin Chewable) 81 mg PO DAILY [facility] Last Admin: 08/20/18 12:46 Dose: 81 mg Duloxetine HCl (Cymbalta) 30 mg PO HS [facility] Last Admin: 08/20/18 21:19 Dose: 30 mg Enoxaparin Sodium (Lovenox) 30 mg SC Q24H [facility] Last Admin: 08/20/18 12:52 Dose: 30 mg Fluticasone/Vilanterol (Breo Ellipta 200-25 Mcg Inh) 1 puff INH RQD [facility] Last Admin: 08/20/18 12:57 Dose: 1 puff Furosemide (Lasix) 40 mg PO DAILY [facility] Last Admin: 08/20/18 12:51 Dose: 40 mg Insulin Aspart (Novolog) 0 unit SC ACHS [facility]; Protocol Last Admin: 08/20/18 21:19 Dose: Not Given Levothyroxine Sodium (Synthroid) 50 mcg PO DAILY@0630 [facility] Last Admin: 08/20/18 05:30 Dose: Not Given Metoprolol Tartrate (Lopressor) 25 mg PO BID [facility] Last Admin: 08/20/18 18:01 Dose: 25 mg Pantoprazole Sodium (Protonix Ec Tab) 40 mg PO DAILY [facility] Last Admin: 08/20/18 12:52 Dose: 40 mg Potassium Chloride (K-Dur 20 Meq Er Tab) 20 meq PO DAILY [facility] Last Admin: 08/20/18 12:50 Dose: 20 meq Rosuvastatin Calcium (Crestor) 10 mg PO HS [facility] Last Admin: 08/20/18 21:19 Dose: 10 mg Zolpidem Tartrate (Ambien) 5 mg PO HS [facility] Last Admin: 08/19/18 21:02 Dose: 5 mg - Labs Labs: 08/18/18 17:45 08/18/18 17:45 PT 11.4 SECONDS (9.7-12.2) 08/18/18 17:45 INR 1.0 08/18/18 17:45 APTT 28 SECONDS (21-34) 08/18/18 17:45 Assessment and Plan - Assessment and Plan (Free Text) Assessment: Stress test: Normal ECHO: Normal Ef Chest pain-Non cardiac Medical management
[2018-08-21] MEDS: Levothyroxine 50 MCG TAB PO SCH (06:02)
[2018-08-21] MEDS: (Novolog) Insulin Aspart, Recombinant 100 u/ml 10 ml vial SC SCH ×3 (07:52→16:23)
[2018-08-21] MEDS: Fluticasone-Vilanterol 200/25mcg Diskus INH SCH (08:46)
[2018-08-21] MEDS: Potassium Chloride 20 mEq ER Tab PO SCH (10:01)
[2018-08-21] MEDS: Pantoprazole 40 mg EC Tab PO SCH (10:02)
[2018-08-21] MEDS: Folic Acid/Ascorbic Acid/Ferrous Sulfate 1 Tab PO SCH (10:13)
[2018-08-21] MEDS: Enoxaparin 30 mg Syringe SC SCH (12:25)
--- NOTE | 2018-08-21 15:21 | CP.PCM.PN ---
Subjective - Date & Time of Evaluation Date of Evaluation: 08/21/18 Time of Evaluation: 15:19 - Subjective Subjective: PATIENT SEEN AND EXAMINED AT THE BEDSIDE Objective - Vital Signs/Intake and Output Vital Signs (last 24 hours): Temp Pulse Resp BP Pulse Ox 98.1 F 91 H 24 105/59 L 93 L 08/21/18 12:00 08/21/18 12:00 08/21/18 12:00 08/21/18 12:00 08/21/18 12:00 Intake and Output: 08/21/18 08/21/18 06:59 18:59 Intake Total 400 Balance 400 - Medications Medications: Current Medications Albuterol (Ventolin Hfa 90 Mcg/Actuation (8 G)) 1 puff INH RBID PRN PRN Reason: Wheezing Amlodipine Besylate (Norvasc) 5 mg PO DAILY [facility] Last Admin: 08/21/18 10:01 Dose: 5 mg Ascorbic Ac/Ferrous Sulf/Folic Acid (Iberet-Folic 500) 1 ter PO DAILY [facility] Last Admin: 08/21/18 10:13 Dose: 1 ter Aspirin (Aspirin Chewable) 81 mg PO DAILY [facility] Last Admin: 08/21/18 10:02 Dose: 81 mg Duloxetine HCl (Cymbalta) 30 mg PO HS [facility] Last Admin: 08/20/18 21:19 Dose: 30 mg Enoxaparin Sodium (Lovenox) 30 mg SC Q24H [facility] Last Admin: 08/21/18 12:25 Dose: 30 mg Fluticasone/Vilanterol (Breo Ellipta 200-25 Mcg Inh) 1 puff INH RQD [facility] Last Admin: 08/21/18 08:46 Dose: 1 puff Furosemide (Lasix) 40 mg PO DAILY [facility] Last Admin: 08/21/18 10:02 Dose: 40 mg Insulin Aspart (Novolog) 0 unit SC ACHS [facility]; Protocol Last Admin: 08/21/18 12:22 Dose: 3 units Levothyroxine Sodium (Synthroid) 50 mcg PO DAILY@0630 [facility] Last Admin: 08/21/18 06:02 Dose: 50 mcg Metoprolol Tartrate (Lopressor) 25 mg PO BID [facility] Last Admin: 08/21/18 10:02 Dose: 25 mg Pantoprazole Sodium (Protonix Ec Tab) 40 mg PO DAILY [facility] Last Admin: 08/21/18 10:02 Dose: 40 mg Potassium Chloride (K-Dur 20 Meq Er Tab) 20 meq PO DAILY [facility] Last Admin: 08/21/18 10:01 Dose: 20 meq Rosuvastatin Calcium (Crestor) 10 mg PO HS [facility] Last Admin: 08/20/18 21:19 Dose: 10 mg Zolpidem Tartrate (Ambien) 5 mg PO HS [facility] Last Admin: 08/20/18 22:30 Dose: 5 mg - Labs Labs: 08/18/18 17:45 08/18/18 17:45 PT 11.4 SECONDS (9.7-12.2) 08/18/18 17:45 INR 1.0 08/18/18 17:45 APTT 28 SECONDS (21-34) 08/18/18 17:45 Assessment and Plan - Assessment and Plan (Free Text) Assessment: FOLLOW UP WITH DR STACY IN HIS OFFICE ----CALL FOR APPOINTMENT FOLLOW UP WITH DR GUERRERO IN HIS OFFICE -----CALL FOR APPOINTMENT CONTINUE HOME MEDICATION NEW PRESCRIPTION GIVEN ASPIRIN 81 MG PO DAILY ACTIVITY TOLERATED CALL DR STACY OR GO TO THE EMERGENCY ROOM IF SYMPTOM RETURN OR WORSENING DISCUSS WITH PATIENT CHRISTINE BLUNT AGREE AND VERBALIZED UNDERSTANDING
[2018-08-21 16:23] VITALS: BP 111/62; PULSE 94; RESP 22; TEMP 97.2; O2SAT 95
--- NOTE | 2018-08-21 16:50 | IP.NPCORE ---
Heart Failure Core Measure - Heart Failure Ejection Fraction: 40 % or Greater LIZBETH Inhibitor Prescribed: Yes Beta-Cara Prescribed: Metoprolol Succinate Angiotensin II Receptor Cara Prescribed: No Contraindication/Reason for not providing: LIZBETH AnticoagulationTherapy for Atrial Fibrillation/Atrialflutter: No Contraindication/Reason for not providing: NO HX OF AFIB Aldosterone Antagonist Prescribed: No Contraindication/Reason for not providing: EF>40 Hydralazine Nitrate Prescribed: No Contraindication/Reason for not providing: EF>40 Implantable Cardioverter Defibrillator Therapy: No Contraindication/Reason for not providing: EF>40 Cardiac Resynchronization Therapy Prescribed: No Contraindication/Reason for not providing: EF>40 - Follow up Will be discharged to: Home Follow Up Date (must be within 7 days from discharge): 08/27/18 Follow Up Time: 10:00
--- NOTE | 2018-08-21 19:08 | CP.PCM.DIS ---
Provider - Provider Date of Admission: 08/18/18 18:28 Attending physician: Sandra Stacy MD Consults: 08/18/18 22:51 Cardiology Consult Routine Comment: Consulting Provider: Shankar Guerrero Consulting Physician: Shankar Guerrero Reason for Consult: chest pain 08/19/18 08:44 Social Work Referral Routine Comment: lives with son Physician Instructions: Reason For Exam: lives with son Hospital Course - Lab Results Lab Results: Micro Results 08/19/18 08:39 Naris MRSA Culture (Admit) - Final MRSA NOT DETECTED Most Recent Lab Values WBC 7.0 K/uL (4.8-10.8) 08/18/18 17:45 RBC 3.78 Mil/uL (3.80-5.20) L 08/18/18 17:45 Hgb 11.9 g/dL (11.0-16.0) 08/18/18 17:45 Hct 35.6 % (34.0-47.0) 08/18/18 17:45 MCV 94.0 fL (81.0-99.0) D 08/18/18 17:45 MCH 31.4 pg (27.0-31.0) H 08/18/18 17:45 MCHC 33.4 g/dL (33.0-37.0) 08/18/18 17:45 RDW 15.4 % (11.5-14.5) H 08/18/18 17:45 Plt Count 194 K/uL (130-400) 08/18/18 17:45 MPV 9.7 fL (7.2-11.7) 08/18/18 17:45 Neut % (Auto) 67.2 % (50.0-75.0) 08/18/18 17:45 Lymph % (Auto) 21.1 % (20.0-40.0) 08/18/18 17:45 [place] % (Auto) 9.5 % (0.0-10.0) 08/18/18 17:45 Eos % (Auto) 1.5 % (0.0-4.0) 08/18/18 17:45 Baso % (Auto) 0.7 % (0.0-2.0) 08/18/18 17:45 Neut # (Auto) 4.7 K/uL (1.8-7.0) 08/18/18 17:45 Lymph # (Auto) 1.5 K/uL (1.0-4.3) 08/18/18 17:45 [place] # (Auto) 0.7 K/uL (0.0-0.8) 08/18/18 17:45 Eos # (Auto) 0.1 K/uL (0.0-0.7) 08/18/18 17:45 Baso # (Auto) 0.1 K/uL (0.0-0.2) 08/18/18 17:45 PT 11.4 SECONDS (9.7-12.2) 08/18/18 17:45 INR 1.0 08/18/18 17:45 APTT 28 SECONDS (21-34) 08/18/18 17:45 Sodium 139 mmol/L (132-148) 08/18/18 17:45 Potassium 3.7 mmol/L (3.6-5.2) 08/18/18 17:45 Chloride 101 mmol/L (98-107) 08/18/18 17:45 Carbon Dioxide 27 mmol/L (22-30) 08/18/18 17:45 Anion Gap 14 (10-20) 08/18/18 17:45 BUN 18 mg/dL (7-17) H 08/18/18 17:45 Creatinine 1.3 mg/dL (0.7-1.2) H 08/18/18 17:45 Est GFR ( Amer) 47 08/18/18 17:45 Est GFR (Non-Af Amer) 39 08/18/18 17:45 POC Glucose (mg/dL) 99 mg/dL (65-110) 08/19/18 07:26 Random Glucose 139 mg/dL (65-105) H 08/18/18 17:45 Calcium 11.0 mg/dl (8.6-10.4) H 08/18/18 17:45 Total Bilirubin 0.3 mg/dL (0.2-1.3) 08/18/18 17:45 AST 23 U/L (14-36) 08/18/18 17:45 ALT 6 U/L (9-52) L D 08/18/18 17:45 Alkaline Phosphatase 38 U/L (38-126) 08/18/18 17:45 Total Creatine Kinase 28 U/L (30-135) L 08/19/18 06:53 CK-MB (Mass) 0.62 ng/mL (0.0-3.38) 08/19/18 06:53 Troponin I 0.0130 ng/mL (0.00-0.120) 08/19/18 06:53 Total Protein 6.2 g/dL (6.3-8.3) L 08/18/18 17:45 Albumin 4.0 g/dL (3.5-5.0) 08/18/18 17:45 Globulin 2.2 gm/dL (2.2-3.9) 08/18/18 17:45 Albumin/Globulin Ratio 1.8 (1.0-2.1) 08/18/18 17:45 Urine Color Yellow (YELLOW) 08/18/18 18:44 Urine Clarity Hazy (Clear) 08/18/18 18:44 Urine pH 6.0 (5.0-8.0) 08/18/18 18:44 Ur Specific Bison 1.005 (1.003-1.030) 08/18/18 18:44 Urine Protein Negative mg/dL (NEGATIVE) 08/18/18 18:44 Urine Glucose (UA) Normal mg/dL (Normal) 08/18/18 18:44 Urine Ketones Negative mg/dL (NEGATIVE) 08/18/18 18:44 Urine Blood Negative (NEGATIVE) 08/18/18 18:44 Urine Nitrate Negative (NEGATIVE) 08/18/18 18:44 Urine Bilirubin Negative (NEGATIVE) 08/18/18 18:44 Urine Urobilinogen Normal mg/dL (0.2-1.0) 08/18/18 18:44 Ur Leukocyte Esterase Trace Kia/uL (Negative) 08/18/18 18:44 Urine WBC (Auto) 7 /hpf (0-5) H 08/18/18 18:44 Urine RBC (Auto) 1 /hpf (0-3) 08/18/18 18:44 Ur Squamous Epith Cells 4 /hpf (0-5) 08/18/18 18:44 Urine Bacteria Rare (<OCC) 08/18/18 18:44 Hyaline Casts 3-5 /lpf (0-2) H 08/18/18 18:44 Discharge Plan - Discharge Medications Prescriptions: Aspirin [Aspirin Chewable] 81 mg PO DAILY 30 Days chew - Follow Up Plan Condition: FAIR Disposition: HOME/ ROUTINE Instructions: Chest Pain That Is Not Caused by the Heart (DC) Additional Instructions: FOLLOW UP WITH DR STACY IN HIS OFFICE ----CALL FOR APPOINTMENT FOLLOW UP WITH DR GUERRERO IN HIS OFFICE -----CALL FOR APPOINTMENT CONTINUE HOME MEDICATION NEW PRESCRIPTION GIVEN ASPIRIN 81 MG PO DAILY ACTIVITY TOLERATED CALL DR STACY OR GO TO THE EMERGENCY ROOM IF SYMPTOM RETURN OR WORSENING Referrals: Shankar Guerrero MD [Staff Provider] - Sandra Stacy MD [Staff Provider] -
--- NOTE | 2018-08-21 21:38 | CARD ---
APPROVED REPORT Date of service: 08/19/2018 EKG Measurement Heart [id number] 156P34 [id number] <Conclusion> Normal sinus rhythm Normal ECG
--- NOTE | 2018-08-21 21:44 | CARD ---
APPROVED REPORT Date of service: 08/19/2018 EKG Measurement Heart [id number] SD 160P32 [id number] <Conclusion> Normal sinus rhythm Normal ECG
--- NOTE | 2018-08-22 04:20 | CARD ---
APPROVED REPORT Date of service: 08/20/2018 Protocol: LEXISCAN Test Type: LEXISCAN STRESS Test Indications: CP Medical History: CP Target HR: 133 bpm Resting ECG: NSR WITH NS ST T CHANGES Resting Heart Rate: 81 bpm Resting Blood Pressure: 132/80mmHg submaximum (85%): 113 bpm TEST SUMMARY PREINFSNHYPERV.04:[id number]/80.0. INFUSIONDOSE 100:300.00.01.081/.0. KFMSFGGRD06:[id number]/80.1. PROCEDURE Pharmacologic stress testing was performed using 0.4mg per 5ml of regadenoson given intravenously over 7-10 seconds. POST EXERCISE Reason for Termination: Protocol Completed Target HR: No Max HR: 81 bpm 84% of Maximum Predicted HR: 133 bpm Exercise duration: 00:30 min:sec, 0 Stage Exercise capacity: 1.0METs Max Blood Pressure: 132/80mmHg Blood Pressure response to exercise: normal resting BP - appropriate response Heart Rate response to exercise: appropriate Chest Pain: No, none Angina index: 0 Arrhythmia: No, none ST Change: No, none Deviation: 0 mm INTERPRETATION Stress EKG Conclusion: NEGATIVE LEXISCAN STRESS TEST NORMAL BP RESPONSE TO LEXISCAN NUCLEAR STUDIES TO BE READ SEPARATELY EXAM: Myocardial Perfusion STRESS/REST Imaging Protocol The imaging protocol used to acquire images was Stress Tc-99m/rest Tc-99m 1 day Stress Spect myocardial perfusion imaging was performed in supine position 44 minutes following the injection of 13.1 mCi of Tc-99 Myoview. Gated Rest Spect was performed 45 minutes after intravenous 33 mCi Tc-99 Myoview injection. The images were gated to evaluate regional wall motion and calculate ventricular ejection fraction.Images were reconstructed using backfilter projection method in short horizontal and verticle long axis. Spect slices were generated. RESTING DATA EDV31.76trDF9.10L/min ESV3.00mlMyocardial Mass70.00g Av. Heart Rate75.00bpm EF90.00% STRESS DATA EDV32.47flAE4.10L/min ESV4.00mlMyocardial Mass72.00g EF88.00% Regional WT score at stress:1.00 Regional WM score at stress:0.00 Summed WT score at stress:1.00 Av. Heart Rate75.00bpmSummed WM score at stress:0.00 LV Perf. Quant 17 Seg. SSS7.00 17 Seg. SRS1.00 17 Seg. SDS6.00 Stress Defect Extent (% LAD)28.80Rest Defect Extent (% LAD)8.10Rev. Defect Extent (% LAD)28.80 Stress Defect Extent (% LCX)0.00Rest Defect Extent (% LCX)0.00Rev. Defect Extent (% LCX)0.00 Stress Defect Extent (% RCA)1.10Rest Defect Extent (% RCA)0.00Rev. Defect Extent (% RCA)1.10 Stress Defect Extent (% RYAN)14.80Rest Defect Extent (% RYAN)4.30Rev. Defect Extent (% RYAN)14.60 Other Information Quality:Good IMPRESSION Normal Myocardial Perfusion exercise stress study Left Ventricle LV Function:Left ventricle systolic function is normal. The Ejection Fraction is >70%. Metabolism/Perfusion There are no perfusion/metabolism defects. Conclusion 1. Normal Lexiscan Nuclear stress test. normal EF
== END 2018-08-21 19:37 | disposition home or self-care (01) ==
LOC: C.ER 16:13 → C.9E 18:28 → C.9I 08-19 06:49
PROVIDERS: ADMIT Internal Medicine Critical Care Medicine; ATTEND Internal Medicine Critical Care Medicine
DX: R07.89 Other chest pain (principal); N64.4 Mastodynia; I10 Essential (primary) hypertension; E03.9 Hypothyroidism, unspecified; E11.9 Type 2 diabetes mellitus without complications; J44.9 Chronic obstructive pulmonary disease, unspecified; F03.90 Unspecified dementia, unspecified severity, without behavioral disturbance, psychotic disturbance, mood disturbance, and anxiety; M81.0 Age-related osteoporosis without current pathological fracture; H91.90 Unspecified hearing loss, unspecified ear; Z79.82 Long term (current) use of aspirin; Z85.3 Personal history of malignant neoplasm of breast; Z90.49 Acquired absence of other specified parts of digestive tract
CPT/HCPCS: 71045; 76642; 78452; 80053; 81001; 82550; 82553; 82948; 84484; 85025; 85610; 85730; 87081; 93005; 93017; 93306; 94640; 96372; 96374; 97116; 97162; 97166; 97530; 99285; A9502; G0378; G8978; G8979; G8987; G8988; J0706; J1650; J2060; J2785

== ENCOUNTER 2018-08-24 13:15 | Emergency (ER) | payer MEDICARE, OTHER ==
[2018-08-24 13:16] VITALS: BMI 24.9
[2018-08-24 13:33] VITALS: BP 117/72
--- NOTE | 2018-08-24 15:28 | C.PDOC ---
History Of Present Illness 88 year old female is brought to the ED by son for evaluation of left 2nd toe pain status post hitting foot against object 2 days ago. Son reports she has an upcoming appointment with Podriatry specialist next week. Reports she uses walker to walk at home. Denies any weakness, numbness of any other injuries. Time Seen by Provider: 08/24/18 13:51 Chief Complaint (Nursing): Lower Extremity Problem/Injury History Per: Patient, Family (son) History/Exam Limitations: no limitations Onset/Duration Of Symptoms: Days (3) Current Symptoms Are (Timing): Still Present - Ankle/Foot Description Of Injury: Struck Against Object Past Medical History Reviewed: Historical Data, Nursing Documentation, Vital Signs Vital Signs: Last Vital Signs Temp 98.2 F 08/24/18 13:28 Pulse 89 08/24/18 13:28 Resp 20 08/24/18 13:28 BP 117/72 08/24/18 13:28 Pulse Ox 96 08/24/18 13:28 - Medical History PMH: Anemia, Arthritis, Asthma, COPD, Dementia, Diabetes, Diverticulitis, HTN, Hypothyroidism, Malignancy (Right breast CA), Osteoporosis Denies: Chronic Kidney Disease Surgical History: Cholecystectomy, Endoscopy - [facility] Procedures CLOSED ENDOSCOPIC BIOPSY OF LARGE INTESTINE (10/22/13) DRAINAGE OF LEFT UPPER LEG, OPEN APPROACH (05/13/18) ENDO EXCISION/DEST OF LESION OR TISSUE OF STOMACH (10/22/13) ESOPHAGOGASTRODUODENOSCOPY [EGD] W/CLOSED BIOPSY (12/09/12) OTHER ENDOSCOPY OF SM INTEST (02/09/15) Family History: States: No Known Family Hx - Social History Hx Tobacco Use: No Hx Alcohol Use: No Hx Substance Use: No - Immunization History Hx Tetanus Toxoid Vaccination: Yes Hx Influenza Vaccination: Yes Hx Pneumococcal Vaccination: Yes Review Of Systems Except As Marked, All Systems Reviewed And Found Negative. Constitutional: Negative for: Fever, Chills Musculoskeletal: Positive for: Foot Pain (left 2nd toe pain ) Neurological: Negative for: Weakness, Numbness Physical Exam - Physical Exam Appears: Non-toxic, No Acute Distress Skin: Warm, Dry, No Rash Head: Atraumatic, Normacephalic Eye(s): bilateral: Normal Inspection Nose: Normal Oral Mucosa: Moist Neck: Supple Chest: Symmetrical Cardiovascular: Rhythm Regular Respiratory: Normal Breath Sounds, No Rales, No Rhonchi, No Wheezing Gastrointestinal/Abdominal: Bowel Sounds (active), Soft, No Tenderness Back: No CVA Tenderness, No Vertebral Tenderness, No Paraspinal Tenderness Extremity: No Normal ROM (limited ROM secondary to pain ), Capillary Refill (less than 2 sec to left foot ), No Deformity, Other (Positive erythema, ecchymosis, and tenderness over MTP joint of left 2nd toe and toe itself) Pulses: Left Dorsalis Pedis: Normal, Right Dorsalis Pedis: Normal Neurological/Psych: Oriented x3, Normal Speech, Normal Motor, Normal Sensation Gait: With Assistance (Uses Walker at home) ED Course And Treatment O2 Sat by Pulse Oximetry: 96 (RA) Pulse Ox Interpretation: Normal - Other Rad XR left foot X-Ray: Viewed By Me, Read By Radiologist Interpretation: Accession No. : [id number]. Patient Name / ID : ALEX Barry / [id number]. Exam Date : 08/24/2018 14:23:45 ( Approved ). Study Comment : Sex / Age : F / 88Y. Creator : Bozena Aguirre MD. Dictator : Bozena Aguirre MD. Supervisor Ditching : Grant Administrator : Bozena Aguirre MD. Approver2 : Report Date : 08/24/2018 16:39:38. My Comment : . Date of service: 08/24/2018. PROCEDURE: X-ray of the left foot. HISTORY: injury, pain. COMPARISON: No prior similar study available for comparison. TECHNIQUE: Three views x-ray of the left foot were obtained. FINDINGS: No evidence of acute fracture or dislocation. IMPRESSION: No evidence of acute fracture or dislocation. Medical Decision Making Medical Decision Making: Plan - Tylenol 650mg PO - XR left foot Xrays are negative for fracture or dislocations. Jignesh tape and Ortho shoe was applied by lead manufacturing technician. The son who is present with the patient states that they have an appointment this week with the [employer] Product Development Manager (Dr. Lawson) and will follow up then. Disposition - Disposition Referrals: Miguel Angel Pappas DPM [Staff Provider] - Disposition: HOME/ ROUTINE Disposition Time: 15:28 Condition: GOOD Additional Instructions: Follow up with the [employer] Product Development Manager this week. Return if worsened. Instructions: Toe Injury (DC) Forms: [facility] (Thai) - Clinical Impression Clinical Impression: Toe fracture - Scribe Statement The provider has reviewed the documentation as recorded by the Scribreji Sidhu All medical record entries made by the Livibe were at my direction and personally dictated by me. I have reviewed the chart and agree that the record accurately reflects my personal performance of the history, physical exam, medical decision making, and the department course for this patient. I have also personally directed, reviewed, and agree with the discharge instructions and disposition.
[2018-08-24 15:39] VITALS: PULSE 78; RESP 18; TEMP 98.3
[2018-08-24 16:32] VITALS: O2SAT 96
--- NOTE | 2018-08-24 16:42 | RAD ---
Date of service: 08/24/2018 PROCEDURE: X-ray of the left foot HISTORY: injury, pain COMPARISON: No prior similar study available for comparison. TECHNIQUE: Three views x-ray of the left foot were obtained. FINDINGS: No evidence of acute fracture or dislocation. IMPRESSION: No evidence of acute fracture or dislocation.
== END 2018-08-24 15:37 | disposition home or self-care (01) ==
LOC: C.ER 13:15
DX: S92.502A Displaced unspecified fracture of left lesser toe(s), initial encounter for closed fracture (principal); W22.8XXA Striking against or struck by other objects, initial encounter; E03.9 Hypothyroidism, unspecified; E11.9 Type 2 diabetes mellitus without complications; I10 Essential (primary) hypertension; J44.9 Chronic obstructive pulmonary disease, unspecified; M81.0 Age-related osteoporosis without current pathological fracture; Z85.3 Personal history of malignant neoplasm of breast; F03.90 Unspecified dementia, unspecified severity, without behavioral disturbance, psychotic disturbance, mood disturbance, and anxiety

== ENCOUNTER 2018-08-24 20:22 | Inpatient (IN) | payer MEDICARE, OTHER ==
[2018-08-24 20:22] VITALS: BMI 24.9
--- NOTE | 2018-08-24 21:21 | C.PDOC ---
History Of Present Illness 88 y/o female comes in complaining of left chest wall pain and left hip pain after she tripped and fell on her surgical boot that she got earlier today due to left second toe contusion. Left foot XR was negative. Patient denies hitting her head or LOC. - HPI Time Seen by Provider: 08/24/18 20:55 Chief Complaint (Nursing): Trauma History Per: Patient History/Exam Limitations: no limitations Onset/Duration Of Symptoms: Hrs Past Medical History Reviewed: Historical Data, Nursing Documentation, Vital Signs Vital Signs: Last Vital Signs Temp 97.5 F L 08/24/18 20:29 Pulse 67 08/24/18 20:29 Resp 20 08/24/18 20:29 BP 107/69 08/24/18 20:29 Pulse Ox 95 08/24/18 20:29 - Medical History PMH: Anemia, Arthritis, Asthma, COPD, Dementia, Diabetes, Diverticulitis, HTN, Hypothyroidism, Malignancy (Right breast CA), Osteoporosis Denies: Chronic Kidney Disease Surgical History: Cholecystectomy, Endoscopy - [facility] Procedures CLOSED ENDOSCOPIC BIOPSY OF LARGE INTESTINE (10/22/13) DRAINAGE OF LEFT UPPER LEG, OPEN APPROACH (05/13/18) ENDO EXCISION/DEST OF LESION OR TISSUE OF STOMACH (10/22/13) ESOPHAGOGASTRODUODENOSCOPY [EGD] W/CLOSED BIOPSY (12/09/12) OTHER ENDOSCOPY OF SM INTEST (02/09/15) Family History: States: No Known Family Hx - Social History Hx Tobacco Use: No Hx Alcohol Use: No Hx Substance Use: No - Immunization History Hx Tetanus Toxoid Vaccination: Yes Hx Influenza Vaccination: Yes Hx Pneumococcal Vaccination: Yes Review Of Systems Except As Marked, All Systems Reviewed And Found Negative. Constitutional: Negative for: Fever, Chills Cardiovascular: Positive for: Other (Left chest wall pain) Respiratory: Negative for: Shortness of Breath Gastrointestinal: Negative for: Nausea, Vomiting Musculoskeletal: Positive for: Other (Left hip pain) Neurological: Negative for: Other (LOC) Physical Exam - Physical Exam Appears: Non-toxic, No Acute Distress Skin: Warm, Dry Head: Atraumatic, Normacephalic Eye(s): bilateral: Normal Inspection Oral Mucosa: Moist Neck: Supple Chest: Tenderness (to left lateral chest wall, lower aspect) Cardiovascular: Rhythm Regular, No Murmur Respiratory: Normal Breath Sounds, No Rales, No Rhonchi, No Wheezing Gastrointestinal/Abdominal: Soft, No Tenderness Extremity: Normal ROM (full ROM of L hip without pain, not shortened or rot ated), Other (tenderness to left lateral hip) Extremity: Bilateral: Normal Color And Temperature Neurological/Psych: Oriented x3, Normal Speech, Normal Motor, Normal Sensation ED Course And Treatment - Laboratory Results Result Diagrams: 08/24/18 21:57 08/24/18 21:57 Lab Interpretation: Normal ECG: Interpreted By Me ECG Rhythm: Sinus Rhythm ECG Interpretation: Normal Rate From EC O2 Sat by Pulse Oximetry: 95 (RA) Pulse Ox Interpretation: Normal - Radiology CXR Interpretation: Yes: Other (deferred for Chest CT) Reevaluation Time: 22:22 Reassessment Condition: Improved - Physician Consult Information Outcome Of Conversation: [id number]: d/w arden Doshi to med/surg Obs Medical Decision Making Medical Decision Making: Plan: --Chest CT --EKG --Labs --Chest XR --Hip XR --UA --Motrin 400 mg PO gait apraxia L 2nd toe contusion earlier today, neg x-rays fall from standing later today L lateral rib fx's 7-10, minimally displaced L hip constusion, no fx dispo: consider [facility] placement Disposition Doctor Will See Patient In The: Hospital Counseled Patient/Family Regarding: Studies Performed, Diagnosis - Disposition Disposition: HOSPITALIZED Disposition Time: 22:24 Condition: GOOD Forms: [facility] (Kyrgyz) - Clinical Impression Clinical Impression: Fall from standing, Left rib fracture, Contusion of left hip - Scribe Statement The provider has reviewed the documentation as recorded by the Jorje Krishnamurthy Provider Attestation: All medical record entries made by the Jorje were at my direction and personally dictated by me. I have reviewed the chart and agree that the record accurately reflects my personal performance of the history, physical exam, medical decision making, and the department course for this patient. I have also personally directed, reviewed, and agree with the discharge instructions and disposition.
--- NOTE | 2018-08-24 21:29 | C.PDOC ---
- HPI Time Seen by Provider: 08/24/18 20:55 Chief Complaint (Nursing): Trauma Past Medical History Vital Signs: Last Vital Signs Temp 97.5 F L 08/24/18 20:29 Pulse 67 08/24/18 20:29 Resp 20 08/24/18 20:29 BP 107/69 08/24/18 20:29 Pulse Ox 95 08/24/18 20:29 - Medical History PMH: Anemia, Arthritis, Asthma, COPD, Dementia, Diabetes, Diverticulitis, HTN, Hypothyroidism, Malignancy (Right breast CA), Osteoporosis Denies: Chronic Kidney Disease Surgical History: Cholecystectomy, Endoscopy - [facility] Procedures CLOSED ENDOSCOPIC BIOPSY OF LARGE INTESTINE (10/22/13) DRAINAGE OF LEFT UPPER LEG, OPEN APPROACH (05/13/18) ENDO EXCISION/DEST OF LESION OR TISSUE OF STOMACH (10/22/13) ESOPHAGOGASTRODUODENOSCOPY [EGD] W/CLOSED BIOPSY (12/09/12) OTHER ENDOSCOPY OF SM INTEST (02/09/15) - Social History Hx Tobacco Use: No Hx Alcohol Use: No Hx Substance Use: No - Immunization History Hx Tetanus Toxoid Vaccination: Yes Hx Influenza Vaccination: Yes Hx Pneumococcal Vaccination: Yes ED Course And Treatment O2 Sat by Pulse Oximetry: 95 Disposition - Disposition
[2018-08-24 22:06] LABS: BASO # 0.1 K/uL (0.0-0.2); BASO % 0.7 % (0.0-2.0); EOS # 0.1 K/uL (0.0-0.7); EOS % 1.5 % (0.0-4.0); HEMOGLOBIN 12.1 g/dL (11.0-16.0); LYMPH # 1.4 K/uL (1.0-4.3); LYMPH % 16.5 % (20.0-40.0); MEAN CELL VOLUME 93.5 fL (81.0-99.0); MEAN CORPUSCULAR HGB CONC 32.1 g/dL (33.0-37.0); MEAN PLATELET VOLUME 9.5 fL (7.2-11.7); MONO # 1.1 K/uL (0.0-0.8); MONO % 13.1 % (0.0-10.0); NEUT # 5.8 K/uL (1.8-7.0); NEUT % 68.2 % (50.0-75.0); RBC 4.03 Mil/uL (3.80-5.20); RED CELL DISTRIBUTION WIDTH 14.6 % (11.5-14.5); WHITE BLOOD COUNT 8.5 K/uL (4.8-10.8)
[2018-08-24 22:14] LABS: ALB/GLOB RATIO 1.4 (1.0-2.1); ALBUMIN 3.8 g/dL (3.5-5.0); ALT/SGPT 15 U/L (9-52); AST/SGOT 22 U/L (14-36); BLOOD UREA NITROGEN 23 mg/dL (7-17); CALCIUM 11.3 mg/dl (8.6-10.4); GFR NON-AFRICAN AMERICAN 28
[2018-08-24] MEDS ORDERED: Albuterol-Ipratrop 3 mg / 0.5 (3 ml) UD INH PRN (22:42)
[2018-08-25] MEDS: Levothyroxine 50 MCG TAB PO SCH (05:58)
[2018-08-25] MEDS: (Novolog) Insulin Aspart, Recombinant 100 u/ml 10 ml vial SC SCH ×4 (08:28→22:08)
[2018-08-25] MEDS: Multiple Vitamins Tab PO SCH (09:15)
--- NOTE | 2018-08-25 09:55 | CT ---
Date of service: 08/24/2018 PROCEDURE: CT Chest without contrast HISTORY: ? L lateral rib fx, fall from standing COMPARISON: Comparison is made to the previous study dated 10/21/2013 TECHNIQUE: Contiguous axial images were obtained through the chest without intravenous contrast enhancement. Sagittal and coronal reconstructions were performed. Radiation dose: Total exam DLP = 142.73 mGy-cm. This CT exam was performed using one or more of the following dose reduction techniques: Automated exposure control, adjustment of the mA and/or kV according to patient size, and/or use of iterative reconstruction technique. FINDINGS: LUNGS: Again noted are opacities in the lung apices larger on the left which have not significantly change compared to the prior study likely benign scar or benign pleural thickening or neoplasm. No evidence of significant lung contusion. Nonspecific ground-glass opacities at the right lower lung likely due to atelectasis. MEDIASTINUM: Ectatic ascending thoracic aorta is again noted. The heart is normal in size. Main pulmonary artery is mildly enlarged suggestive of underlying pulmonary hypertension measures up to 3.4 centimeter. No lymphadenopathy. Small foci of atherosclerotic calcification noted at the aortic arch and descending thoracic aorta. PLEURA: No pleural fluid. No pneumothorax. BONES: There are acute fracture noted at the left 7 to 10th ribs. UPPER ABDOMEN: Grossly unremarkable. OTHER FINDINGS: None. IMPRESSION: Acute fracture extending from the left 7th to 10th ribs. No evidence of lung contusion pleural effusion or pneumothorax. Stable consolidation/opacity at the lung apices since the prior study dated 10/21/2013 likely benign scar or benign neoplasm. Preliminary report was submitted by [facility] Radiology contains concordant findings.
[2018-08-25] MEDS ORDERED: Levothyroxine 50 MCG TAB PO SCH (10:00)
[2018-08-25] MEDS ORDERED: Enoxaparin 40 mg Syringe SC SCH (10:00)
[2018-08-25] MEDS: Potassium Chloride 20 mEq ER Tab PO SCH (10:54)
--- NOTE | 2018-08-25 12:40 | RAD ---
PROCEDURE: Left Hip X-ray Radiographs. HISTORY: fall from standing COMPARISON: None. TECHNIQUE: 2 views obtained. FINDINGS: BONES: No evidence of acute fracture in the left hip noted in this exam. JOINTS: Normal. SOFT TISSUES: Normal. OTHER FINDINGS: None. IMPRESSION: No evidence of acute fracture or dislocation of the left hip.
--- NOTE | 2018-08-25 17:41 | CP.PCM.HP ---
Past Patient History - Infectious Disease Hx of Infectious Diseases: None - Past Medical History & Family History Past Medical History?: Yes - Past Social History Smoking Status: Never Smoked - CARDIAC Hx Hypertension: Yes - PULMONARY Hx Asthma: Yes Hx Chronic Obstructive Pulmonary Disease (COPD): Yes - NEUROLOGICAL Hx Dementia: Yes - HEENT Hx HEENT Problems: Yes Hx Deafness: Yes (left ear) - RENAL Hx Chronic Kidney Disease: No - ENDOCRINE/METABOLIC Hx Hypothyroidism: Yes - HEMATOLOGICAL/ONCOLOGICAL Hx Anemia: Yes - INTEGUMENTARY Hx Dermatological Problems: No - MUSCULOSKELETAL/RHEUMATOLOGICAL Hx Arthritis: Yes Hx Osteoporosis: Yes - GASTROINTESTINAL Hx Diverticulitis: Yes - GENITOURINARY/GYNECOLOGICAL Hx Genitourinary Disorders: No - PSYCHIATRIC Hx Substance Use: No - SURGICAL HISTORY Hx Cholecystectomy: Yes - ANESTHESIA Hx Anesthesia: Yes Hx Anesthesia Reactions: No Hx Malignant Hyperthermia: No Meds Allergies/Adverse Reactions: Allergies Allergy/AdvReac Type Severity Reaction Status Date / Time Penicillins Allergy Intermediate RASH Verified 08/24/18 20:34 shellfish derived Allergy Intermediate RASH Verified 08/24/18 20:34 tomato Allergy Intermediate RASH Verified 08/24/18 20:34 Results - Vital Signs Recent Vital Signs: Last Vital Signs Temp 98.7 F 08/25/18 07:30 Pulse 68 08/25/18 07:30 Resp 18 08/25/18 07:30 BP 132/68 08/25/18 16:44 Pulse Ox 94 L 08/25/18 07:30 - Labs Result Diagrams: 08/24/18 21:57 08/24/18 21:57 Labs: Laboratory Results - last 24 hr 08/24/18 08/24/18 08/25/18 21:57 21:57 06:12 WBC 8.5 RBC 4.03 Hgb 12.1 Hct 37.6 MCV 93.5 MCH 30.0 MCHC 32.1 L RDW 14.6 H Plt Count 204 MPV 9.5 Neut % (Auto) 68.2 Lymph % (Auto) 16.5 L [place] % (Auto) 13.1 H Eos % (Auto) 1.5 Baso % (Auto) 0.7 Neut # (Auto) 5.8 Lymph # (Auto) 1.4 [place] # (Auto) 1.1 H Eos # (Auto) 0.1 Baso # (Auto) 0.1 Sodium 136 Potassium 4.6 Chloride 104 Carbon Dioxide 25 Anion Gap 12 BUN 23 H Creatinine 1.7 H Est GFR ( Amer) 34 Est GFR (Non-Af Amer) 28 POC Glucose (mg/dL) 113 H Random Glucose 116 H Calcium 11.3 H Total Bilirubin 0.5 AST 22 ALT 15 Alkaline Phosphatase 50 Troponin I < 0.0120 Total Protein 6.6 Albumin 3.8 Globulin 2.8 Albumin/Globulin Ratio 1.4 08/25/18 08/25/18 11:59 17:08 WBC RBC Hgb Hct MCV MCH MCHC RDW Plt Count MPV Neut % (Auto) Lymph % (Auto) [place] % (Auto) Eos % (Auto) Baso % (Auto) Neut # (Auto) Lymph # (Auto) [place] # (Auto) Eos # (Auto) Baso # (Auto) Sodium Potassium Chloride Carbon Dioxide Anion Gap BUN Creatinine Est GFR ( Amer) Est GFR (Non-Af Amer) POC Glucose (mg/dL) 130 H 146 H Random Glucose Calcium Total Bilirubin AST ALT Alkaline Phosphatase Troponin I Total Protein Albumin Globulin Albumin/Globulin Ratio
[2018-08-26] MEDS: Levothyroxine 50 MCG TAB PO SCH (06:45)
[2018-08-26] MEDS: (Novolog) Insulin Aspart, Recombinant 100 u/ml 10 ml vial SC SCH ×5 (07:49→22:12)
[2018-08-26] MEDS: Potassium Chloride 20 mEq ER Tab PO SCH (10:30)
[2018-08-26] MEDS: Multiple Vitamins Tab PO SCH (10:30)
[2018-08-26 13:52] LABS: SQUAMOUS EPITHIAL 1 /hpf (0-5); URINE BACTERIA OCC (<OCC); URINE BILIRUBIN NEGATIVE (NEGATIVE); URINE BLOOD NEGATIVE (NEGATIVE); URINE CLARITY Clear (Clear); URINE COLOR Yellow (YELLOW); URINE GLUCOSE (UA) NORMAL (Normal); URINE LEUKOCYTE ESTERASE NEG Leu/uL (Negative); URINE PROTEIN NEGATIVE (NEGATIVE); URINE UROBILINOGEN NORMAL mg/dL (0.2-1.0)
--- NOTE | 2018-08-26 17:37 | CP.PCM.PN ---
Subjective - Date & Time of Evaluation Date of Evaluation: 08/26/18 Time of Evaluation: 17:37 Objective - Vital Signs/Intake and Output Vital Signs (last 24 hours): Temp Pulse Resp BP Pulse Ox 98.2 F 70 18 123/69 94 L 08/26/18 15:06 08/26/18 15:06 08/26/18 15:06 08/26/18 15:06 08/26/18 15:06 Intake and Output: 08/26/18 08/26/18 06:59 18:59 Intake Total 480 Output Total 700 Balance -220 - Medications Medications: Current Medications Albuterol/Ipratropium (Duoneb 3 Mg/0.5 Mg (3 Ml) Ud) 3 ml INH RQ6 PRN PRN Reason: Shortness of Breath Donepezil HCl (Aricept) 5 mg PO DAILY [facility] Last Admin: 08/26/18 11:40 Dose: 5 mg Duloxetine HCl (Cymbalta) 30 mg PO [facility] Last Admin: 08/25/18 22:36 Dose: 30 mg Enoxaparin Sodium (Lovenox) 40 mg SC DAILY [facility] Ferrous Sulfate (Feosol) 325 mg PO TID [facility] Last Admin: 08/26/18 14:57 Dose: 325 mg Furosemide (Lasix) 40 mg PO DAILY [facility] Last Admin: 08/26/18 11:41 Dose: 40 mg Gabapentin (Neurontin) 100 mg PO [facility] Last Admin: 08/25/18 22:05 Dose: 100 mg Insulin Aspart (Novolog) 0 unit SC [facility]; Protocol Last Admin: 08/26/18 11:45 Dose: Not Given Levothyroxine Sodium (Synthroid) 50 mcg PO DAILY@0630 [facility] Last Admin: 08/26/18 06:45 Dose: 50 mcg Memantine (Namenda) 10 mg PO DAILY [facility] Last Admin: 08/26/18 10:30 Dose: 10 mg [facility]) [facility] Last Admin: 08/26/18 08:30 Dose: 500 mg Metoprolol Tartrate (Lopressor) 25 mg PO BID [facility] Last Admin: 08/26/18 10:30 Dose: 25 mg Morphine Sulfate (Morphine) 2 mg IVP Q4 PRN PRN Reason: Pain, severe (8-10) Last Admin: 08/25/18 20:48 Dose: 2 mg Multivitamins (Hexavitamin) 1 tab PO DAILY [facility] Last Admin: 08/26/18 10:30 Dose: 1 tab Rosuvastatin Calcium (Crestor) 10 mg PO [facility] Zolpidem Tartrate (Ambien) 5 mg PO [facility] Last Admin: 08/25/18 22:40 Dose: 5 mg - Labs Labs: 08/24/18 21:57 08/24/18 21:57
[2018-08-27 07:06] LABS: BASO # 0.1 K/uL (0.0-0.2); BASO % 0.7 % (0.0-2.0); EOS # 0.2 K/uL (0.0-0.7); EOS % 1.7 % (0.0-4.0); HEMOGLOBIN 10.6 g/dL (11.0-16.0); LYMPH # 1.7 K/uL (1.0-4.3); LYMPH % 18.6 % (20.0-40.0); MEAN CORPUSCULAR HEMOGLOBIN 30.6 pg (27.0-31.0); MEAN CORPUSCULAR HGB CONC 32.9 g/dL (33.0-37.0); MEAN PLATELET VOLUME 9.8 fL (7.2-11.7); MONO # 1.3 K/uL (0.0-0.8); MONO % 13.7 % (0.0-10.0); NEUT # 6.1 K/uL (1.8-7.0); NEUT % 65.3 % (50.0-75.0); NRBC % 0.1 % (0.0-2.0); RBC 3.47 Mil/uL (3.80-5.20); RED CELL DISTRIBUTION WIDTH 13.9 % (11.5-14.5); WHITE BLOOD COUNT 9.4 K/uL (4.8-10.8)
[2018-08-27 07:14] LABS: PROTHROMBIN TIME 11.1 SECONDS (9.7-12.2)
[2018-08-27] MEDS: (Novolog) Insulin Aspart, Recombinant 100 u/ml 10 ml vial SC SCH ×4 (07:30→21:38)
[2018-08-27] MEDS: Levothyroxine 50 MCG TAB PO SCH (07:30)
[2018-08-27 07:51] LABS: ALB/GLOB RATIO 1.2 (1.0-2.1); ALBUMIN 3.1 g/dL (3.5-5.0); CALCIUM 10.3 mg/dl (8.6-10.4)
[2018-08-27] MEDS: Multiple Vitamins Tab PO SCH (10:45)
--- NOTE | 2018-08-27 15:05 | CP.PCM.CON ---
History of Present Illness - History of Present Illness History of Present Illness: Orthopedic consultation Dr. Jose 88F complains of left sided pain after trip and fall 3 days ago. She says the worst of her pain is in her ribs. She denies pain in her neck/back/legs/arms/head/groin. Admits to occasional pain on the outside of her leg. Denies numbness/tingling. Denies CP/SOB/dizziness/LOC/n/v. Review of Systems - Review of Systems All systems: reviewed and no additional remarkable complaints except Review of Systems: no fever/chills - Cardiovascular Cardiovascular: As Per HPI - Respiratory Respiratory: As Per HPI - Gastrointestinal Gastrointestinal: As Per HPI - Musculoskeletal Musculoskeletal: As Per HPI - Integumentary Integumentary: As Per HPI - Neurological Neurological: As Per HPI - Hematologic/Lymphatic Hematologic: absent: As Per HPI, Easy Bleeding, Easy Bruising, Lymphadenopathy, Other Past Patient History - Infectious Disease Hx of Infectious Diseases: None - Past Medical History & Family History Past Medical History?: Yes Past Family History: Reviewed and not pertinent - Past Social History Smoking Status: Never Smoked - CARDIAC Hx Hypertension: Yes - PULMONARY Hx Chronic Obstructive Pulmonary Disease (COPD): Yes - NEUROLOGICAL Hx Dementia: Yes - HEENT Hx HEENT Problems: Yes Hx Deafness: Yes (left ear) - RENAL Hx Chronic Kidney Disease: No - ENDOCRINE/METABOLIC Hx Hypothyroidism: Yes - HEMATOLOGICAL/ONCOLOGICAL Hx Anemia: Yes - INTEGUMENTARY Hx Dermatological Problems: No - MUSCULOSKELETAL/RHEUMATOLOGICAL Hx Arthritis: Yes Hx Falls: Yes Hx Osteoporosis: Yes - GASTROINTESTINAL Hx Diverticulitis: Yes - GENITOURINARY/GYNECOLOGICAL Hx Genitourinary Disorders: No - PSYCHIATRIC Hx Substance Use: No - SURGICAL HISTORY Hx Cholecystectomy: Yes Hx Mastectomy: Yes (right partial mastectomy) - ANESTHESIA Hx Anesthesia: Yes Hx Anesthesia Reactions: No Hx Malignant Hyperthermia: No Meds Allergies/Adverse Reactions: Allergies Allergy/AdvReac Type Severity Reaction Status Date / Time Penicillins Allergy Intermediate RASH Verified 08/24/18 20:34 shellfish derived Allergy Intermediate RASH Verified 08/24/18 20:34 tomato Allergy Intermediate RASH Verified 08/24/18 20:34 - Medications Medications: Current Medications Albuterol/Ipratropium (Duoneb 3 Mg/0.5 Mg (3 Ml) Ud) 3 ml INH RQ6 PRN PRN Reason: Shortness of Breath Donepezil HCl (Aricept) 5 mg PO DAILY [facility] Last Admin: 08/27/18 10:45 Dose: 5 mg Duloxetine HCl (Cymbalta) 30 mg PO [facility] Last Admin: 08/26/18 22:37 Dose: 30 mg Enoxaparin Sodium (Lovenox) 40 mg SC DAILY [facility] Ferrous Sulfate (Feosol) 325 mg PO TID [facility] Last Admin: 08/27/18 14:55 Dose: 325 mg Furosemide (Lasix) 40 mg PO DAILY [facility] Last Admin: 08/27/18 10:45 Dose: 40 mg Gabapentin (Neurontin) 100 mg PO [facility] Last Admin: 08/26/18 22:38 Dose: 100 mg Insulin Aspart (Novolog) 0 unit SC [facility]; Protocol Last Admin: 08/27/18 11:30 Dose: Not Given Levothyroxine Sodium (Synthroid) 50 mcg PO DAILY@0630 [facility] Last Admin: 08/27/18 07:30 Dose: Not Given Memantine (Namenda) 10 mg PO DAILY [facility] Last Admin: 08/27/18 10:44 Dose: 10 mg [facility]) [facility] Last Admin: 08/27/18 09:00 Dose: 500 mg Metoprolol Tartrate (Lopressor) 25 mg PO BID [facility] Last Admin: 08/27/18 10:44 Dose: 25 mg Morphine Sulfate (Morphine) 2 mg IVP Q4 PRN PRN Reason: Pain, severe (8-10) Last Admin: 08/26/18 19:17 Dose: 2 mg Multivitamins (Hexavitamin) 1 tab PO DAILY [facility] Last Admin: 08/27/18 10:45 Dose: 1 tab Rosuvastatin Calcium (Crestor) 10 mg PO [facility] Last Admin: 08/26/18 22:38 Dose: 10 mg Zolpidem Tartrate (Ambien) 5 mg PO [facility] Last Admin: 08/26/18 22:38 Dose: 5 mg Physical Exam - Constitutional Appears: Well, No Acute Distress (sitting in chair) - Head Exam Head Exam: ATRAUMATIC - Neck Exam Neck exam: Positive for: Full Rom, Normal Inspection - Respiratory Exam Respiratory Exam: NORMAL BREATHING PATTERN - Cardiovascular Exam Additional comments: +DP/PT pulses BLE - Expanded Lower Extremities Exam Left Hip exam: full ROM, tenderness (over greater trochanter, mild), normal inspection Knee exam: full ROM (non tender to thigh/knee/ankle, calves soft NT neg homans, no pain with full AROM left hip, no pain with PROM/compression/distraction/grind), normal inspection Lower Leg Exam: full ROM Ankle exam: FULL ROM, NORMAL INSPECTION Neuro vacular tendon exam: no vascular compromise - Back Exam Back exam: NORMAL INSPECTION Additional comments: non tender - Neurological Exam Neurological exam: Alert, Oriented x3 - Psychiatric Exam Psychiatric exam: Normal Affect, Normal Mood - Skin Skin Exam: Dry, Intact, Normal Color, Warm Results - Vital Signs Recent Vital Signs: Last Vital Signs Temp 97.8 F 08/27/18 07:00 Pulse 83 08/27/18 07:00 Resp 18 08/27/18 07:00 BP 104/65 08/27/18 10:45 Pulse Ox 94 L 08/27/18 07:00 - Labs Result Diagrams: 08/27/18 06:57 08/27/18 06:57 Labs: Laboratory Results - last 24 hr 08/27/18 08/27/18 08/27/18 06:57 06:57 06:57 WBC 9.4 RBC 3.47 L Hgb 10.6 L Hct 32.3 L MCV 93.0 MCH 30.6 MCHC 32.9 L RDW 13.9 Plt Count 184 MPV 9.8 Neut % (Auto) 65.3 Lymph % (Auto) 18.6 L [place] % (Auto) 13.7 H Eos % (Auto) 1.7 Baso % (Auto) 0.7 Neut # (Auto) 6.1 Lymph # (Auto) 1.7 [place] # (Auto) 1.3 H Eos # (Auto) 0.2 Baso # (Auto) 0.1 PT 11.1 INR 1.0 APTT 27 Sodium 131 L Potassium 4.4 Chloride 99 Carbon Dioxide 28 Anion Gap 9 L BUN 23 H Creatinine 1.6 H Est GFR ( Amer) 37 Est GFR (Non-Af Amer) 30 Random Glucose 112 H Calcium 10.3 Total Bilirubin 0.4 AST 24 ALT 6 L D Alkaline Phosphatase 49 Total Protein 5.7 L Albumin 3.1 L Globulin 2.6 Albumin/Globulin Ratio 1.2 - Impressions Impression: Patient Name / ID : ALEX Barry / [id number] Exam Date : 08/24/2018 21:16:05 ( Approved ) Study Comment : Sex / Age : F / 88Y Creator : Katherine Velazquez RT,CT Dictator : Bozena Aguirre MD Spring Intern : Ios Developer : Bozena Aguirre MD Approver2 : Report Date : 08/24/2018 21:59:55 My Comment : Date of service: 08/24/2018 PROCEDURE: CT Chest without contrast HISTORY: ? L lateral rib fx, fall from standing COMPARISON: Comparison is made to the previous study dated 10/21/2013 TECHNIQUE: Contiguous axial images were obtained through the chest without intravenous contrast enhancement. Sagittal and coronal reconstructions were performed. Radiation dose: Total exam DLP = 142.73 mGy-cm. This CT exam was performed using one or more of the following dose reduction techniques: Automated exposure control, adjustment of the mA and/or kV according to patient size, and/or use of iterative reconstruction technique. FINDINGS: LUNGS: Again noted are opacities in the lung apices larger on the left which have not significantly change compared to the prior study likely benign scar or benign pleural thickening or neoplasm. No evidence of significant lung contusion. Nonspecific ground-glass opacities at the right lower lung likely due to atelectasis. MEDIASTINUM: Ectatic ascending thoracic aorta is again noted. The heart is normal in size. Main pulmonary artery is mildly enlarged suggestive of underlying pulmonary hypertension measures up to 3.4 centimeter. No lymphadenopathy. Small foci of atherosclerotic calcification noted at the aortic arch and descending thoracic aorta. PLEURA: No pleural fluid. No pneumothorax. BONES: There are acute fracture noted at the left 7 to 10th ribs. UPPER ABDOMEN: Grossly unremarkable. OTHER FINDINGS: None. IMPRESSION: Acute fracture extending from the left 7th to 10th ribs. No evidence of lung contusion pleural effusion or pneumothorax. Stable consolidation/opacity at the lung apices since the prior study dated 10/21/2013 likely benign scar or benign neoplasm. Preliminary report was submitted by [facility] Radiology contains concordant findings. atient Name / ID : ALEX COLORADO M / [id number] Exam Date : 08/24/2018 21:03:08 ( Approved ) Study Comment : Sex / Age : F / 88Y Creator : Bozena Aguirre MD Dictator : Bozena Aguirre MD Spring Intern : Ios Developer : Bozena Aguirre MD Approver2 : Report Date : 08/25/2018 12:36:44 My Comment : PROCEDURE: Left Hip X-ray Radiographs. HISTORY: fall from standing COMPARISON: None. TECHNIQUE: 2 views obtained. FINDINGS: BONES: No evidence of acute fracture in the left hip noted in this exam. JOINTS: Normal. SOFT TISSUES: Normal. OTHER FINDINGS: None. IMPRESSION: No evidence of acute fracture or dislocation of the left hip. Assessment & Plan (1) Greater trochanteric bursitis of left hip Assessment and Plan: no fracture noted, no clinical suspicion of hip fracture PT/OT FWB LLE encourage OOB VTE proph d/w Dr. Jose, agrees with above Status: Acute (2) Multiple fractures of ribs, left side, initial encounter for closed fracture Assessment and Plan: no pneumothorax on CT incentive spirometry ordered rib fractures are outside the scope of practice of orthopedics, if any complications suspect, recomment thoracic consultation Status: Acute
[2018-08-27 18:04] VITALS: RESP 20
[2018-08-27] MEDS: Enoxaparin 30 mg Syringe SC SCH (19:13)
--- NOTE | 2018-08-27 19:27 | CP.PCM.PN ---
Subjective - Date & Time of Evaluation Date of Evaluation: 08/27/18 Time of Evaluation: 19:27 Objective - Vital Signs/Intake and Output Vital Signs (last 24 hours): Temp Pulse Resp BP Pulse Ox 97.7 F 70 20 114/67 98 08/27/18 15:00 08/27/18 15:00 08/27/18 15:00 08/27/18 18:00 08/27/18 15:00 - Medications Medications: Current Medications Albuterol/Ipratropium (Duoneb 3 Mg/0.5 Mg (3 Ml) Ud) 3 ml INH RQ6 PRN PRN Reason: Shortness of Breath Donepezil HCl (Aricept) 5 mg PO DAILY [facility] Last Admin: 08/27/18 10:45 Dose: 5 mg Duloxetine HCl (Cymbalta) 30 mg PO HS [facility] Last Admin: 08/26/18 22:37 Dose: 30 mg Enoxaparin Sodium (Lovenox) 30 mg SC DAILY [facility] Last Admin: 08/27/18 19:13 Dose: 30 mg Ferrous Sulfate (Feosol) 325 mg PO TID [facility] Last Admin: 08/27/18 18:00 Dose: 325 mg Furosemide (Lasix) 40 mg PO DAILY [facility] Last Admin: 08/27/18 10:45 Dose: 40 mg Gabapentin (Neurontin) 100 mg PO HS [facility] Last Admin: 08/26/18 22:38 Dose: 100 mg Insulin Aspart (Novolog) 0 unit SC [facility]; Protocol Last Admin: 08/27/18 11:30 Dose: Not Given Levothyroxine Sodium (Synthroid) 50 mcg PO DAILY@0630 [facility] Last Admin: 08/27/18 07:30 Dose: Not Given Memantine (Namenda) 10 mg PO DAILY [facility] Last Admin: 08/27/18 10:44 Dose: 10 mg Metformin HCl (Glucophage) 500 mg PO BIDCC [facility] Last Admin: 08/27/18 18:00 Dose: 500 mg Metoprolol Tartrate (Lopressor) 25 mg PO BID [facility] Last Admin: 08/27/18 18:00 Dose: 25 mg Morphine Sulfate (Morphine) 2 mg IVP Q4 PRN PRN Reason: Pain, severe (8-10) Last Admin: 08/27/18 19:16 Dose: 2 mg Multivitamins (Hexavitamin) 1 tab PO DAILY [facility] Last Admin: 08/27/18 10:45 Dose: 1 tab Rosuvastatin Calcium (Crestor) 10 mg PO HS [facility] Last Admin: 08/26/18 22:38 Dose: 10 mg Zolpidem Tartrate (Ambien) 5 mg PO HS [facility] Last Admin: 08/26/18 22:38 Dose: 5 mg - Labs Labs: 08/27/18 06:57 08/27/18 06:57 PT 11.1 SECONDS (9.7-12.2) 08/27/18 06:57 INR 1.0 08/27/18 06:57 APTT 27 SECONDS (21-34) 08/27/18 06:57
[2018-08-28] MEDS: Levothyroxine 50 MCG TAB PO SCH (05:46)
[2018-08-28] MEDS: (Novolog) Insulin Aspart, Recombinant 100 u/ml 10 ml vial SC SCH ×2 (07:30→11:38)
[2018-08-28 08:03] VITALS: PULSE 70; TEMP 98.1; O2SAT 94
[2018-08-28] MEDS: Enoxaparin 30 mg Syringe SC SCH (09:19)
[2018-08-28] MEDS: Multiple Vitamins Tab PO SCH (09:20)
[2018-08-28 09:21] VITALS: BP 102/65
[2018-08-28] MEDS ORDERED: Lidocaine 5% Patch TD SCH (12:45)
--- NOTE | 2018-08-28 13:20 | CP.PCM.PN ---
Subjective - Date & Time of Evaluation Date of Evaluation: 08/28/18 Time of Evaluation: 13:20 Objective - Vital Signs/Intake and Output Vital Signs (last 24 hours): Temp Pulse Resp BP Pulse Ox 98.1 F 70 20 102/65 94 L 08/28/18 07:00 08/28/18 07:00 08/28/18 07:00 08/28/18 09:19 08/28/18 07:00 Intake and Output: 08/28/18 08/28/18 06:59 18:59 Intake Total 300 Output Total 350 Balance -50 - Medications Medications: Current Medications Albuterol/Ipratropium (Duoneb 3 Mg/0.5 Mg (3 Ml) Ud) 3 ml INH RQ6 PRN PRN Reason: Shortness of Breath Donepezil HCl (Aricept) 5 mg PO DAILY [facility] Last Admin: 08/28/18 09:19 Dose: 5 mg Duloxetine HCl (Cymbalta) 30 mg PO HS [facility] Last Admin: 08/27/18 22:39 Dose: 30 mg Enoxaparin Sodium (Lovenox) 30 mg SC DAILY [facility] Last Admin: 08/28/18 09:19 Dose: 30 mg Ferrous Sulfate (Feosol) 325 mg PO TID [facility] Last Admin: 08/28/18 09:20 Dose: 325 mg Furosemide (Lasix) 40 mg PO DAILY [facility] Last Admin: 08/28/18 09:19 Dose: 40 mg Gabapentin (Neurontin) 100 mg PO HS [facility] Last Admin: 08/27/18 22:38 Dose: 100 mg Insulin Aspart (Novolog) 0 unit SC [facility]; Protocol Last Admin: 08/28/18 11:38 Dose: Not Given Levothyroxine Sodium (Synthroid) 50 mcg PO DAILY@0630 [facility] Last Admin: 08/28/18 05:46 Dose: 50 mcg Lidocaine (Lidoderm) 1 ea TD DAILY [facility] Memantine (Namenda) 10 mg PO DAILY [facility] Last Admin: 08/28/18 09:20 Dose: 10 mg Metformin HCl (Glucophage) 500 mg PO BIDCC [facility] Last Admin: 08/28/18 07:43 Dose: 500 mg Metoprolol Tartrate (Lopressor) 25 mg PO BID [facility] Last Admin: 08/28/18 09:19 Dose: 25 mg Morphine Sulfate (Morphine) 2 mg IVP Q4 PRN PRN Reason: Pain, severe (8-10) Last Admin: 08/28/18 05:51 Dose: 2 mg Multivitamins (Hexavitamin) 1 tab PO DAILY [facility] Last Admin: 08/28/18 09:20 Dose: 1 tab Rosuvastatin Calcium (Crestor) 10 mg PO HS [facility] Last Admin: 08/27/18 22:38 Dose: 10 mg Zolpidem Tartrate (Ambien) 5 mg PO HS [facility] Last Admin: 08/27/18 22:38 Dose: 5 mg - Labs Labs: 08/27/18 06:57 08/27/18 06:57 PT 11.1 SECONDS (9.7-12.2) 08/27/18 06:57 INR 1.0 08/27/18 06:57 APTT 27 SECONDS (21-34) 08/27/18 06:57
--- NOTE | 2018-08-28 17:03 | CP.PCM.PN ---
Subjective - Date & Time of Evaluation Date of Evaluation: 08/28/18 Time of Evaluation: 10:00 - Subjective Subjective: patient seen today, denies any dizziness, headache, c/o pain to the left rib cage a febrile vss and labs reviewed- stable Objective - Vital Signs/Intake and Output Vital Signs (last 24 hours): Temp Pulse Resp BP Pulse Ox 98.1 F 70 20 102/65 94 L 08/28/18 07:00 08/28/18 07:00 08/28/18 07:00 08/28/18 09:19 08/28/18 07:00 Intake and Output: 08/28/18 08/28/18 06:59 18:59 Intake Total 300 600 Output Total 350 300 Balance -50 300 - Labs Labs: 08/27/18 06:57 08/27/18 06:57 PT 11.1 SECONDS (9.7-12.2) 08/27/18 06:57 INR 1.0 08/27/18 06:57 APTT 27 SECONDS (21-34) 08/27/18 06:57 Assessment and Plan - Assessment and Plan (Free Text) Assessment: A/P 88 yr old female with pmhx of COPD, Dementia, Diabetes, Diverticulitis, HTN, Hypothyroidism, admitted with left chest wall pain and left hip pain after she tripped and fell at home / Left rib fracture, Contusion of left hip ortho consulted- no fx of hip , continue PT patient accepted at [facility] for rehab and son in agreement D/w Dr. Sylvester cleared fro discharge to [facility] today will repeat CXR in 10 days to reevaluate
--- NOTE | 2018-08-29 07:14 | CARD ---
APPROVED REPORT Date of service: 08/24/2018 EKG Measurement Heart [id number] <Conclusion> Normal sinus rhythm Normal ECG
== END 2018-08-28 16:54 | DRG 605 ==
LOC: C.ER 20:22 → C.9E 22:20 → C.6T 23:23 → OBSVTOIN 08-26 16:00
PROVIDERS: ADMIT Internal Medicine Critical Care Medicine; ATTEND Internal Medicine Critical Care Medicine
DX: S70.02XA Contusion of left hip, initial encounter (principal); S90.122A Contusion of left lesser toe(s) without damage to nail, initial encounter; W01.0XXA Fall on same level from slipping, tripping and stumbling without subsequent striking against object, initial encounter; Z85.3 Personal history of malignant neoplasm of breast; I10 Essential (primary) hypertension; H91.90 Unspecified hearing loss, unspecified ear; F03.90 Unspecified dementia, unspecified severity, without behavioral disturbance, psychotic disturbance, mood disturbance, and anxiety; E11.9 Type 2 diabetes mellitus without complications; E03.9 Hypothyroidism, unspecified; M70.62 Trochanteric bursitis, left hip; J44.9 Chronic obstructive pulmonary disease, unspecified